=== PATIENT | male | born 1985 | race Caucasian/White ===

== ENCOUNTER 2016-12-06 10:41 | Inpatient (IN) | payer OTHER ==
[2016-12-06 13:40] VITALS: BMI 33.7
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
[2016-12-06] MEDS ORDERED: MAG HYDROX/AL HYDROX/SIMETH 30 ML UNIT-DOSE CUP PO PRN (14:07)
[2016-12-06] MEDS ORDERED: MAGNESIUM HYDROX 2400MG/30ML ORAL SUSPENSION 30 ML CUP PO PRN (14:07)
[2016-12-06] MEDS ORDERED: NICOTINE POLACRILEX 4 MG GUM BUC PRN (14:07)
[2016-12-06] MEDS ORDERED: ACETAMINOPHEN 325 MG TABLET (FP) PO PRN (14:07)
[2016-12-06] MEDS ORDERED: IBUPROFEN 400 MG TABLET (FP) PO PRN (14:07)
[2016-12-06] MEDS ORDERED: MENTHOL/PHENOL 1 EACH UD MM PRN (14:07)
[2016-12-06] MEDS ORDERED: P-EPHED 60MG/TRIPROLIDI 2.5MG TABLET PO PRN (14:07)
[2016-12-06] MEDS ORDERED: LOPERAMIDE HCL 2 MG CAPSULE PO PRN (14:07)
[2016-12-06] MEDS ORDERED: MAGNESIUM CITRATE 300 ML BOTTLE PO PRN (14:07)
[2016-12-06] MEDS ORDERED: diphenhydrAMINE HCL 50 MG CAPSULE PO PRN (14:07)
[2016-12-06] MEDS ORDERED: guaiFENesin/D-METHORPHAN HB 10 ML UNIT-DOSE CUPS PO PRN (14:07)
[2016-12-06] MEDS ORDERED: TUBERCULIN PPD 5 TU/0.1ML VIAL ID ONE (16:42)
[2016-12-06 17:49] LABS: MCH 30.6 pg (25.7-33.7); MCHC 33.2 g/dl (32.0-35.9); MEAN CELL VOLUME 92.2 fl (80-96); MEAN PLT VOLUME 9.3 fl (7.5-11.1); PLATELET COUNT 196 K/MM3 (134-434); RDW 13.7 % (11.9-15.9); WHITE BLOOD COUNT 10.6 K/mm3 (4.0-10.0)
[2016-12-06 18:01] LABS: ALBUMIN 4.6 g/dl (3.4-5.0); ANION GAP 12 (8-16); CALCIUM 9.1 mg/dL (8.5-10.1); CO2 27 mmol/L (21-32); CREATININE 1.1 mg/dL (0.7-1.3); GLUCOSE,RANDOM 104 mg/dL (74-106); SGOT/AST 42 U/L (15-37); SGPT/ALT 88 U/L (12-78)
[2016-12-06 18:02] LABS: ALK PHOS 50 U/L (45-117); BILIRUBIN,TOTAL 2.1 mg/dL (0.2-1.0); TOT PROT 7.9 g/dl (6.4-8.2)
[2016-12-06 19:11] LABS: URINE APPEARANCE CLEAR; URINE BILIRUBIN NEGATIVE (NEGATIVE); URINE BLOOD NEGATIVE (NEGATIVE); URINE COLOR DKYELLOW; URINE GLUCOSE (UA) NEGATIVE (NEGATIVE); URINE KETONE NEGATIVE (NEGATIVE); URINE LEUK ESTERASE NEGATIVE (NEGATIVE); URINE NITRITE NEGATIVE (NEGATIVE); URINE PROTEIN NEGATIVE (NEGATIVE); URINE UROBILINOGEN NEGATIVE E.U./dl (0.2-1.0)
[2016-12-06] MEDS: NICOTINE 21 MG/24 HOURS TOPICAL PATCH TD SCH (19:44)
[2016-12-06] MEDS: THIAMINE HCL 100 MG TABLET (FP) PO SCH (21:53)
[2016-12-07] MEDS: NICOTINE 21 MG/24 HOURS TOPICAL PATCH TD SCH (09:40)
[2016-12-07] MEDS: PRENATAL VITAMINS W/ FOLIC ACID TABLET (FP) PO SCH (09:40)
[2016-12-07] MEDS ORDERED: METHADONE HCL 10 MG TABLET PO SCH (10:15)
[2016-12-07] MEDS ORDERED: METHADONE HCL 40 MG DISPERSABLE TABLET ONE (10:23)
[2016-12-07] MEDS ORDERED: METHADONE HCL 10 MG TABLET ONE (10:23)
[2016-12-07] MEDS ORDERED: METHADONE 80 MG, METHADONE 30 MG PO ONE (10:30)
[2016-12-07 13:16] LABS: HIV 1 & 2 AB NEGATIVE; HIV 1 AGp24 NEGATIVE
--- NOTE | 2016-12-07 15:00 | EKG ---
Test Reason : Blood Pressure : / mmHG Vent. Rate : 064 BPM Atrial Rate : 064 BPM P-R Int : 186 ms QRS Dur : 096 ms QT Int : 450 ms P-R-T Axes : 063 017 039 degrees QTc Int : 464 ms NORMAL SINUS RHYTHM NO PREVIOUS ECGS AVAILABLE Confirmed by BELLA WARREN MD ([id number]) on 12/07/2016 3:00:41 PM Referred By: Leonides Matthews Confirmed By:BELLA WARREN MD
[2016-12-07] MEDS: THIAMINE HCL 100 MG TABLET (FP) PO SCH (21:11)
[2016-12-08] MEDS ORDERED: METHADONE HCL 10 MG TABLET ONE (04:06)
[2016-12-08] MEDS ORDERED: METHADONE HCL 40 MG DISPERSABLE TABLET ONE (04:07)
[2016-12-08] MEDS: METHADONE 80 MG, METHADONE 30 MG PO SCH (06:28)
[2016-12-08] MEDS: NICOTINE 21 MG/24 HOURS TOPICAL PATCH TD SCH (09:40)
[2016-12-08] MEDS: PRENATAL VITAMINS W/ FOLIC ACID TABLET (FP) PO SCH (09:40)
[2016-12-08] MEDS: hydrOXYzine PAMOATE 25 MG CAPSULE (FP) PO PRN ×2 (09:42→21:54)
[2016-12-08] MEDS: THIAMINE HCL 100 MG TABLET (FP) PO SCH (21:52)
[2016-12-09] MEDS ORDERED: METHADONE HCL 10 MG TABLET ONE (03:06)
[2016-12-09] MEDS ORDERED: METHADONE HCL 40 MG DISPERSABLE TABLET ONE (03:07)
[2016-12-09] MEDS: METHADONE 80 MG, METHADONE 30 MG PO SCH (06:27)
[2016-12-09] MEDS: PRENATAL VITAMINS W/ FOLIC ACID TABLET (FP) PO SCH (09:29)
[2016-12-09] MEDS: NICOTINE 21 MG/24 HOURS TOPICAL PATCH TD SCH (09:29)
[2016-12-09] MEDS: hydrOXYzine PAMOATE 25 MG CAPSULE (FP) PO PRN (09:30)
[2016-12-09] MEDS ORDERED: COLLOIDAL OATMEAL 1 BAR EACH TP PRN (12:11)
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
[2016-12-09] MEDS: THIAMINE HCL 100 MG TABLET (FP) PO SCH (21:41)
[2016-12-09] MEDS: hydrOXYzine PAMOATE 50 MG CAPSULE (FP) PO PRN (21:41)
[2016-12-10] MEDS ORDERED: METHADONE HCL 10 MG TABLET ONE (03:05)
[2016-12-10] MEDS ORDERED: METHADONE HCL 40 MG DISPERSABLE TABLET ONE (03:05)
[2016-12-10] MEDS: METHADONE 80 MG, METHADONE 30 MG PO SCH (06:32)
[2016-12-10] MEDS: hydrOXYzine PAMOATE 50 MG CAPSULE (FP) PO PRN ×2 (06:34→20:47)
[2016-12-10] MEDS: NICOTINE 21 MG/24 HOURS TOPICAL PATCH TD SCH (09:24)
[2016-12-10] MEDS: PRENATAL VITAMINS W/ FOLIC ACID TABLET (FP) PO SCH (09:24)
[2016-12-10] MEDS: THIAMINE HCL 100 MG TABLET (FP) PO SCH (21:52)
[2016-12-11] MEDS ORDERED: METHADONE HCL 10 MG TABLET ONE (04:42)
[2016-12-11] MEDS ORDERED: METHADONE HCL 40 MG DISPERSABLE TABLET ONE (04:43)
[2016-12-11] MEDS: METHADONE 80 MG, METHADONE 30 MG PO SCH (06:28)
[2016-12-11] MEDS: NICOTINE 21 MG/24 HOURS TOPICAL PATCH TD SCH (09:25)
[2016-12-11] MEDS: PRENATAL VITAMINS W/ FOLIC ACID TABLET (FP) PO SCH (09:25)
[2016-12-11] MEDS: hydrOXYzine PAMOATE 50 MG CAPSULE (FP) PO PRN ×2 (09:26→21:51)
[2016-12-11] MEDS: THIAMINE HCL 100 MG TABLET (FP) PO SCH (21:50)
[2016-12-12] MEDS ORDERED: METHADONE HCL 10 MG TABLET ONE (05:02)
[2016-12-12] MEDS ORDERED: METHADONE HCL 40 MG DISPERSABLE TABLET ONE (05:03)
[2016-12-12] MEDS: METHADONE 80 MG, METHADONE 30 MG PO SCH (06:24)
[2016-12-12] MEDS: PRENATAL VITAMINS W/ FOLIC ACID TABLET (FP) PO SCH (09:50)
[2016-12-12] MEDS: hydrOXYzine PAMOATE 50 MG CAPSULE (FP) PO PRN ×2 (09:51→21:36)
[2016-12-12] MEDS: NICOTINE 21 MG/24 HOURS TOPICAL PATCH TD SCH (09:52)
[2016-12-12] MEDS: THIAMINE HCL 100 MG TABLET (FP) PO SCH (21:36)
[2016-12-13] MEDS ORDERED: METHADONE HCL 40 MG DISPERSABLE TABLET ONE (03:09)
[2016-12-13] MEDS ORDERED: METHADONE HCL 10 MG TABLET ONE (03:09)
[2016-12-13] MEDS: METHADONE 80 MG, METHADONE 30 MG PO SCH (06:45)
[2016-12-13] MEDS: PRENATAL VITAMINS W/ FOLIC ACID TABLET (FP) PO SCH (09:25)
[2016-12-13] MEDS: NICOTINE 21 MG/24 HOURS TOPICAL PATCH TD SCH (09:25)
[2016-12-13] MEDS: hydrOXYzine PAMOATE 50 MG CAPSULE (FP) PO PRN ×2 (09:26→22:03)
[2016-12-13] MEDS: THIAMINE HCL 100 MG TABLET (FP) PO SCH (22:03)
[2016-12-14] MEDS ORDERED: METHADONE HCL 40 MG DISPERSABLE TABLET PO SCH (06:00)
[2016-12-14] MEDS ORDERED: METHADONE HCL 10 MG TABLET ONE (06:23)
[2016-12-14] MEDS ORDERED: METHADONE HCL 40 MG DISPERSABLE TABLET ONE (06:23)
[2016-12-14] MEDS: METHADONE 80 MG, METHADONE 30 MG PO SCH (06:24)
[2016-12-14] MEDS: PRENATAL VITAMINS W/ FOLIC ACID TABLET (FP) PO SCH (09:43)
[2016-12-14] MEDS: NICOTINE 21 MG/24 HOURS TOPICAL PATCH TD SCH (09:43)
[2016-12-14] MEDS: hydrOXYzine PAMOATE 50 MG CAPSULE (FP) PO PRN ×2 (09:43→21:58)
[2016-12-14] MEDS: THIAMINE HCL 100 MG TABLET (FP) PO SCH (21:58)
[2016-12-15] MEDS ORDERED: METHADONE HCL 10 MG TABLET ONE (03:08)
[2016-12-15] MEDS ORDERED: METHADONE HCL 40 MG DISPERSABLE TABLET ONE (03:08)
[2016-12-15] MEDS: METHADONE 80 MG, METHADONE 30 MG PO SCH (06:52)
[2016-12-15] MEDS: PRENATAL VITAMINS W/ FOLIC ACID TABLET (FP) PO SCH (09:34)
[2016-12-15] MEDS: hydrOXYzine PAMOATE 50 MG CAPSULE (FP) PO PRN ×2 (09:34→21:52)
[2016-12-15] MEDS: NICOTINE 21 MG/24 HOURS TOPICAL PATCH TD SCH (09:34)
[2016-12-15] MEDS: THIAMINE HCL 100 MG TABLET (FP) PO SCH (21:52)
[2016-12-16] MEDS ORDERED: METHADONE HCL 10 MG TABLET ONE (03:06)
[2016-12-16] MEDS ORDERED: METHADONE HCL 40 MG DISPERSABLE TABLET ONE (03:06)
[2016-12-16] MEDS: METHADONE 80 MG, METHADONE 30 MG PO SCH (06:34)
[2016-12-16] MEDS: hydrOXYzine PAMOATE 50 MG CAPSULE (FP) PO PRN ×2 (09:42→21:52)
[2016-12-16] MEDS: NICOTINE 21 MG/24 HOURS TOPICAL PATCH TD SCH (09:42)
[2016-12-16] MEDS: PRENATAL VITAMINS W/ FOLIC ACID TABLET (FP) PO SCH (09:42)
[2016-12-16] MEDS: THIAMINE HCL 100 MG TABLET (FP) PO SCH (21:52)
[2016-12-17] MEDS ORDERED: METHADONE HCL 10 MG TABLET ONE (03:44)
[2016-12-17] MEDS ORDERED: METHADONE HCL 40 MG DISPERSABLE TABLET ONE (03:44)
[2016-12-17] MEDS: METHADONE 80 MG, METHADONE 30 MG PO SCH (06:28)
[2016-12-17] MEDS: PRENATAL VITAMINS W/ FOLIC ACID TABLET (FP) PO SCH (10:12)
[2016-12-17] MEDS: NICOTINE 21 MG/24 HOURS TOPICAL PATCH TD SCH (10:12)
[2016-12-17] MEDS: hydrOXYzine PAMOATE 50 MG CAPSULE (FP) PO PRN ×2 (10:13→21:20)
[2016-12-17] MEDS: THIAMINE HCL 100 MG TABLET (FP) PO SCH (21:19)
[2016-12-18] MEDS ORDERED: METHADONE HCL 10 MG TABLET ONE (03:20)
[2016-12-18] MEDS ORDERED: METHADONE HCL 40 MG DISPERSABLE TABLET ONE (03:20)
[2016-12-18] MEDS: METHADONE 80 MG, METHADONE 30 MG PO SCH (06:36)
[2016-12-18 07:07] VITALS: BP 111/67; PULSE 63; TEMP 97.5
[2016-12-18] MEDS: hydrOXYzine PAMOATE 50 MG CAPSULE (FP) PO PRN (09:51)
[2016-12-18] MEDS: PRENATAL VITAMINS W/ FOLIC ACID TABLET (FP) PO SCH (09:51)
[2016-12-18] MEDS: NICOTINE 21 MG/24 HOURS TOPICAL PATCH TD SCH (09:52)
--- NOTE | 2016-12-18 20:04 | PN ---
S Progress Note Note: was called by nurse because of the patient request for early discharge. Patient was admitted on 12/06/16, he partially met goals.
--- NOTE | 2016-12-18 20:21 | PN ---
[facility] Progress Note Note: RECEIVED NURSE CALL, PATIENT DISCHARGED TODAY AGREES TO FOLLOW UP PER COUNSELOR ARRANGED, REFUSES E -PRESCRIPTION
== END 2016-12-18 19:50 | disposition home or self-care (01) | DRG 895 ==
LOC: YASAS 10:41 → Y5N 13:38
PROVIDERS: ADMIT Psychiatry & Neurology Psychiatry; ATTEND Psychiatry & Neurology Psychiatry
PROC: HZ42ZZZ Group Counseling for Substance Abuse Treatment, Cognitive-Behavioral (ICD-10-PCS; principal; 2016-12-06)
DX: F14.20 Cocaine dependence, uncomplicated (principal); F11.20 Opioid dependence, uncomplicated; F19.280 Other psychoactive substance dependence with psychoactive substance-induced anxiety disorder; F13.10 Sedative, hypnotic or anxiolytic abuse, uncomplicated; F17.210 Nicotine dependence, cigarettes, uncomplicated; F90.9 Attention-deficit hyperactivity disorder, unspecified type; E66.09 Other obesity due to excess calories; Z68.33 Body mass index [BMI] 33.0-33.9, adult
CPT/HCPCS: 36415; 80053; 81003; 85027; 86593; 87389; 93005; 93010

== ENCOUNTER 2018-10-09 01:08 | Inpatient (IN) | payer OTHER ==
[2018-10-09] MEDS ORDERED: VANCOMYCIN 1 GRAM (PRE-DOCKED) 1,000 MG/250 ML BAG IVPB ONE ×3 (01:29→15:00)
[2018-10-09] MEDS ORDERED: PIPERACILLIN/TAZOB 4.5 GM 4.5 GM in DEXTROSE 5%-WATER 100 ML IVPB ONE (01:29)
--- NOTE | 2018-10-09 01:29 | PDOC ---
Attending Attestation - Resident Resident Name: Anthony Gonzáles - ED Attending Attestation I have performed the following: I have examined & evaluated the patient, The case was reviewed & discussed with the resident, I agree w/resident's findings & plan, Exceptions are as noted - HPI HPI: 10/09/18 01:28 33y M active drug user presents with complain of arm abcess. started 2 days ago as a small bump on the AC fossa of his L arm after he missed after doing IV heroin. notes the pain has ogtten much worse. endorses some fever. denies any numbness/tingling/weakness. 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 Admitting physician has assumed care for the patient, will follow all pending diagnostics and will complete the evaluation and treatment. - Physicial Exam PE: 10/15/18 08:11 see above - Medical Decision Making 10/15/18 08:11 see above
[2018-10-09 01:31] VITALS: BMI 35.9
[2018-10-09] MEDS ORDERED: BENZOIN/ALOE VERA/STORAX/TOLU 58 ML BOTTLE ONE (02:05)
[2018-10-09] MEDS ORDERED: morphine CARPU-JECT 4 MG/1 ML DISP.SYRIN IVPUSH ONE (02:09)
[2018-10-09 02:14] LABS: BASO % 0.2 % (0-2.0); EOS % 1.3 % (0-4.5); HEMATOCRIT 39.8 % (35.4-49); HEMOGLOBIN 13.9 GM/dL (11.7-16.9); LYMPH % 16.4 % (8-40); MCH 31.3 pg (25.7-33.7); MCHC 34.8 g/dl (32.0-35.9); MEAN PLT VOLUME 8.5 fl (7.5-11.1); NEUT % 74.1 % (42.8-82.8); PLATELET COUNT 212 K/MM3 (134-434); RBC 4.42 M/mm3 (4.00-5.60); RDW 13.8 % (11.9-15.9); WHITE BLOOD COUNT 10.7 K/mm3 (4.0-10.0)
[2018-10-09] MEDS ORDERED: morphine SULFATE 4 MG/ML VIAL ONE (02:14)
[2018-10-09 02:28] LABS: INR 1.18 (0.83-1.09)
--- NOTE | 2018-10-09 02:37 | PDOC ---
History of Present Illness - General Chief Complaint: Abscess Boil Stated Complaint: ARM ABSCESS Time Seen by Provider: 10/09/18 01:18 History Source: Patient Exam Limitations: No Limitations - History of Present Illness Initial Comments: 10/09/18 02:33 Patient is a 33M active IVDU (heroin) here today complaining of pain and swelling to his left arm that started two days. Patient states that the pain started off as small bump that rapidly grew. Endorses injecting into the affected area and using dirty needles. Last tested for HIV about a year ago. Denies chest pain, shortness of breath. Endorses pain with movement of arm. Endorses fevers, chills. Past History - Past Medical History Allergies/Adverse Reactions: Allergies Allergy/AdvReac Type Severity Reaction Status Date / Time No Known Allergies Allergy Verified 10/09/18 01:29 Home Medications: Ambulatory Orders Methadone [Dolophine -] 60 mg PO DAILY 10/09/18 Anemia: No Asthma: No Cancer: No Cardiac Disorders: No CVA: No COPD: No CHF: No Dementia: No Diabetes: No GI Disorders: No Disorders: No HTN: No Hypercholesterolemia: No Kidney Stones: No Liver Disease: No Seizures: No Thyroid Disease: No - Surgical History Abdominal Surgery: No Appendectomy: No Cardiac Surgery: No Cholecystectomy: No Lung Surgery: No Neurologic Surgery: No Orthopedic Surgery: No - Reproductive History Testicular Surgery: No - Suicide/Smoking/Psychosocial Hx Smoking History: Unknown if ever smoked Have you smoked in the past 12 months: No Number of Cigarettes Smoked Daily: 10 Cigars Per Day: 0 Information on smoking cessation initiated: No 'Breaking Loose' booklet given: 08/05/17 Hx Alcohol Use: Yes Drug/Substance Use Hx: Yes Substance Use Type: Alcohol, Cocaine, Heroin Hx Substance Use Treatment: Yes (11/2016) Review of Systems - Review of Systems Comments:: 10/09/18 02:34 GENERAL/CONSTITUTIONAL: +fever +chills. No weakness. HEAD, EYES, EARS, NOSE AND THROAT: No change in vision. No sore throat. CARDIOVASCULAR: No chest pain or shortness of breath RESPIRATORY: No cough, wheezing, or hemoptysis. GASTROINTESTINAL: No nausea, vomiting, diarrhea or constipation. GENITOURINARY: No dysuria, frequency, or change in urination. MUSCULOSKELETAL: +l elbow pain. No neck or back pain. SKIN: +rash NEUROLOGIC: No headache, vertigo, loss of consciousness, or change in strength/ sensation. ENDOCRINE: No increased thirst. No abnormal weight change HEMATOLOGIC/LYMPHATIC: No anemia, easy bleeding, or history of blood clots. ALLERGIC/IMMUNOLOGIC: No hives or skin allergy. *Physical Exam - Vital Signs Last Vital Signs Temp Pulse Resp BP Pulse Ox 98.5 F 100 H 18 124/74 97 10/09/18 01:29 10/09/18 01:29 10/09/18 01:29 10/09/18 01:29 10/09/18 01:29 - Physical Exam Comments: 10/09/18 02:35 GENERAL: Awake, alert, and fully oriented, in no acute distress L ARM: Discolored area in anterior aspect of elbow joint, fluctuance with surrounding erythema from mid bicep to mid elbow HEAD: No signs of trauma, normocephalic, atraumatic EYES: PERRLA, EOMI, sclera anicteric, conjunctiva clear ENT: Auricles normal inspection, hearing grossly normal, nares patent, oropharynx clear without exudates. Moist mucosa NECK: Normal ROM, supple, no lymphadenopathy, JVD, or masses LUNGS: No distress, speaks full sentences, clear to auscultation bilaterally HEART: Regular rate and rhythm, normal S1 and S2, no murmurs, rubs or gallops, peripheral pulses normal and equal bilaterally. ABDOMEN: Soft, nontender, normoactive bowel sounds. No guarding, no rebound. No masses EXTREMITIES: Normal inspection, Normal range of motion, no edema. No clubbing or cyanosis. NEUROLOGICAL: Cranial nerves II through XII grossly intact. Normal speech, normal gait, no focal sensorimotor deficits SKIN: Warm, Dry, normal turgor, no rashes or lesions noted. Moderate Sedation - Procedure Monitoring Vital Signs: Procedure Monitoring Vital Signs Temperature 98.5 F 10/09/18 01:29 Pulse Rate 100 H 10/09/18 01:29 Respiratory Rate 18 10/09/18 01:29 Blood Pressure 124/74 10/09/18 01:29 O2 Sat by Pulse Oximetry (%) 97 10/09/18 01:29 ED Treatment Course - LABORATORY CBC & Chemistry Diagram: 10/09/18 01:51 10/09/18 01:51 - ADDITIONAL ORDERS Additional order review: Laboratory Results 10/09/18 01:51 PT with INR 14.00 H INR 1.18 H 10/09/18 01:51 RBC 4.42 MCV 90.0 MCHC 34.8 RDW 13.8 MPV 8.5 Neutrophils % 74.1 D Lymphocytes % 16.4 D Monocytes % 8.0 Eosinophils % 1.3 Basophils % 0.2 - RADIOLOGY Radiology Studies Ordered: Category Date Time Status UPPER EXTREMITY CT WITH CONTR [CT] Stat CT Scan 10/09/18 02:14 Ordered CHEST X-RAY PORTABLE* [RAD] Stat Radiology 10/09/18 01:25 Ordered ELBOW-LEFT [RAD] Stat Radiology 10/09/18 01:26 Ordered - Medications Given in the ED: ED Medications Discontinued Medications Generic Name Dose Route Start Last Admin Trade Name Freq PRN Reason Stop Dose Admin Piperacillin Sod/Tazobactam 100 mls @ 200 mls/hr 10/09/18 01:29 10/09/18 02: 23 Sod 4.5 gm/ Dextrose IVPB 10/09/18 01:58 200 mls/hr ONCE ONE Administration Protocol Morphine Sulfate 4 mg 10/09/18 02:09 10/09/18 02:23 Morphine Injection - IVPUSH 10/09/18 02:10 4 mg ONCE ONE Administration Medical Decision Making - Medical Decision Making 10/09/18 02:36 Patient is 33M here today with abscess and surrounding cellulitis. Vital signs notable for tachycardia, no fever. Septic workup initiated, will also test for HIV. Evaluated with US, roughly 3-4cm deep, difficult to see back end of abscess. Will do CT to evaluate depth of abscess. US guided IV placed, pain control given. 10/09/18 04:53 CBC normal. CMP reassuring. HIV negative. X-rays show no foreign bodies. Pending CT. 10/09/18 05:16 Do not feel comfortable cutting into abscess given surrounding structures. Will consult surgery. D/W Dr Khan, will admit to m/s. 10/09/18 06:03 CT scan shows encirclement of superficial vein, d/w Dr Guerrier, will see patient. *DC/Admit/Observation/Transfer Diagnosis at time of Disposition: Abscess, Cellulitis, IV drug abuse - Discharge Dispostion Condition at time of disposition: Stable Decision to Admit order: Yes - Referrals - Patient Instructions - Post Discharge Activity
[2018-10-09 02:43] LABS: ALBUMIN 3.3 g/dl (3.4-5.0); ALK PHOS 57 U/L (45-117); ANION GAP 8 MMOL/L (8-16); BILIRUBIN,TOTAL 0.6 mg/dL (0.2-1); BLOOD UREA NITROGEN 21 mg/dL (7-18); CALCIUM 8.4 mg/dL (8.5-10.1); CHLORIDE 105 mmol/L (98-107); CO2 28 mmol/L (21-32); CREATININE 0.9 mg/dL (0.55-1.3); GLUCOSE,RANDOM 98 mg/dL (74-106); POTASSIUM 3.8 mmol/L (3.5-5.1); SGOT/AST 17 U/L (15-37); SGPT/ALT 25 U/L (13-61); SODIUM 141 mmol/L (136-145); TOT PROT 6.7 g/dl (6.4-8.2)
[2018-10-09 05:08] LABS: URINE APPEARANCE CLEAR; URINE BILIRUBIN NEGATIVE (<2.0 mg/dL); URINE COLOR STRAW; URINE GLUCOSE (UA) NEGATIVE (NEGATIVE); URINE KETONE NEGATIVE (NEGATIVE); URINE LEUK ESTERASE NEGATIVE (NEGATIVE); URINE NITRITE NEGATIVE (NEGATIVE); URINE PROTEIN NEGATIVE (NEGATIVE); URINE UROBILINOGEN NEGATIVE mg/dL (0.2-1.0)
[2018-10-09 05:25] LABS: PHENCYCLIDINE,URINE NEGATIVE ng/ml (CUTOFF=25); URINE AMPHETAMINES NEGATIVE ng/ml (CUTOFF=500); URINE BARBITURATES NEGATIVE ng/ml (CUTOFF=200); URINE BENZODIAZEPINES NEGATIVE ng/ml (CUTOFF=200)
[2018-10-09 05:28] LABS: COCAINE, UR POSITIVE ng/ml (CUTOFF=300); METHADONE, UR POSITIVE ng/ml (CUTOFF=300); OPIATES, URI POSITIVE ng/ml (CUTOFF=300)
[2018-10-09] MEDS ORDERED: MORPHINE SULFATE 2 MG/ML VIAL IVPUSH PRN (06:19)
--- NOTE | 2018-10-09 06:24 | HP ---
CHIEF COMPLAINT: Arm abscess PCP: None HISTORY OF PRESENT ILLNESS: Seen and examined in ER; briefly, this is a 33 y/o CM with a PMH of IVDU on home methadone 60 QD with h/o polysubstance abuse presenting to the hospital with a CC of arm pain at injection site. He was injecting drugs and tells me that he missed the vein. He had over 2 days worsening of swelling, pain, induration, and fluctuance at the site. Nothing makes it better or worse, hasn' t seen anyone else for this. No prior instrumentation to the area; no abx recently. he is neurovascularly intact with good pulses and can move his hand. ER spoke with Dr. Guerrier who will see him. Recent Travel: None PAST MEDICAL HISTORY: IVDU PAST SURGICAL HISTORY: Social History: Active IV drug user Family History: Asked and noncontributory Allergies No Known Allergies Allergy (Verified 10/09/18 01:29) HOME MEDICATIONS: Home Medications Medication Instructions Recorded Methadone [Dolophine -] 60 mg PO DAILY 10/09/18 REVIEW OF SYSTEMS 10 sys ROS done and negative aside from HPI PHYSICAL EXAMINATION Vital Signs - 24 hr 10/09/18 01:29 Temperature 98.5 F Pulse Rate 100 H Respiratory 18 Rate Blood Pressure 124/74 O2 Sat by Pulse 97 Oximetry (%) GENERAL: Awake, alert, and fully oriented, in no acute distress. HEAD: Normal with no signs of trauma. EYES: Pupils equal, round and reactive to light EARS, NOSE, THROAT: Ears normal, nares patent, oropharynx clear without exudates. Moist mucous membranes. NECK: Normal range of motion, supple without lymphadenopathy, JVD, or masses. LUNGS: Breath sounds equal, clear to auscultation bilaterally. No wheezes, and no crackles. No accessory muscle use. HEART: Regular rate and rhythm, normal S1 and S2 without murmur, rub or gallop. ABDOMEN: Soft, nontender, not distended, normoactive bowel sounds MUSCULOSKELETAL: Large abscess outlined in AC fossa of affected arm with induration extending to the forearm and neurovascularly intact. Normal range of motion at all joints. No bony deformities or tenderness. No CVA tenderness. NEUROLOGICAL: Cranial nerves II-XII intact. Normal speech. Normal gait. PSYCHIATRIC: Cooperative. Good eye contact. Appropriate mood and affect. SKIN: Warm, dry, normal turgor, no rashes or lesions noted, normal capillary refill. Laboratory Results - last 24 hr 10/09/18 10/09/18 10/09/18 01:51 01:51 01:51 WBC 10.7 H RBC 4.42 Hgb 13.9 Hct 39.8 MCV 90.0 MCH 31.3 MCHC 34.8 RDW 13.8 Plt Count 212 D MPV 8.5 Absolute Neuts (auto) 7.9 Neutrophils % 74.1 D Lymphocytes % 16.4 D Monocytes % 8.0 Eosinophils % 1.3 Basophils % 0.2 Nucleated RBC % 0 PT with INR 14.00 H INR 1.18 H Sodium 141 Potassium 3.8 Chloride 105 Carbon Dioxide 28 Anion Gap 8 BUN 21 H Creatinine 0.9 Creat Clearance w eGFR > 60 Random Glucose 98 Lactic Acid Calcium 8.4 L Total Bilirubin 0.6 AST 17 ALT 25 Alkaline Phosphatase 57 Total Protein 6.7 Albumin 3.3 L Urine Color Urine Appearance Urine pH Ur Specific [place] Urine Protein Urine Glucose (UA) Urine Ketones Urine Blood Urine Nitrite Urine Bilirubin Urine Urobilinogen Ur Leukocyte Esterase Opiates Screen Methadone Screen Barbiturate Screen Phencyclidine Screen Ur Amphetamines Screen MDMA (Ecstasy) Screen Benzodiazepines Screen Cocaine Screen U Marijuana (THC) Screen HIV 1&2 Antibody Screen HIV P24 Antigen 10/09/18 10/09/18 10/09/18 01:51 01:51 04:55 WBC RBC Hgb Hct MCV MCH MCHC RDW Plt Count MPV Absolute Neuts (auto) Neutrophils % Lymphocytes % Monocytes % Eosinophils % Basophils % Nucleated RBC % PT with INR INR Sodium Potassium Chloride Carbon Dioxide Anion Gap BUN Creatinine Creat Clearance w eGFR Random Glucose Lactic Acid 1.5 Calcium Total Bilirubin AST ALT Alkaline Phosphatase Total Protein Albumin Urine Color Straw Urine Appearance Clear Urine pH 6.0 Ur Specific [place] 1.055 H Urine Protein Negative Urine Glucose (UA) Negative Urine Ketones Negative Urine Blood Negative Urine Nitrite Negative Urine Bilirubin Negative Urine Urobilinogen Negative Ur Leukocyte Esterase Negative Opiates Screen Methadone Screen Barbiturate Screen Phencyclidine Screen Ur Amphetamines Screen MDMA (Ecstasy) Screen Benzodiazepines Screen Cocaine Screen U Marijuana (THC) Screen HIV 1&2 Antibody Screen Negative HIV P24 Antigen Negative 10/09/18 04:55 WBC RBC Hgb Hct MCV MCH MCHC RDW Plt Count MPV Absolute Neuts (auto) Neutrophils % Lymphocytes % Monocytes % Eosinophils % Basophils % Nucleated RBC % PT with INR INR Sodium Potassium Chloride Carbon Dioxide Anion Gap BUN Creatinine Creat Clearance w eGFR Random Glucose Lactic Acid Calcium Total Bilirubin AST ALT Alkaline Phosphatase Total Protein Albumin Urine Color Urine Appearance Urine pH Ur Specific [place] Urine Protein Urine Glucose (UA) Urine Ketones Urine Blood Urine Nitrite Urine Bilirubin Urine Urobilinogen Ur Leukocyte Esterase Opiates Screen Positive A* Methadone Screen Positive A* Barbiturate Screen Negative Phencyclidine Screen Negative Ur Amphetamines Screen Negative MDMA (Ecstasy) Screen Negative Benzodiazepines Screen Negative Cocaine Screen Positive A* U Marijuana (THC) Screen Negative HIV 1&2 Antibody Screen HIV P24 Antigen ASSESSMENT/PLAN: Presents with forearm abscess 2/2 IVDU 1) Forearm Abscess -Preliminary report reviewed; final report pending. Dr. Guerrier and Dr. Mallory have been consulted. -Trend CBC. FU ESR. -IV vancomycin with pharmacy to dose. Blood cultures pending. Will need procedure to drain; will followup intraop cx. -ER to use device to r/o compartemetn syndrome -Neurovascular checks; outlined the infected area. 2) IVDU -Continue home methadone -Positive for opriates, methadone, cocaine -Technical Support Internship; continue to monitor for murmurs and if positive we will get echo to r/ o endocarditis -No h/o EtOH but if WD signs low threshold for CIWA -HIV negative; HCV Ab pending Dispo: Needs procedure and to see consultants Consults: Sgy (Dr. Guerrier, contacted by ER) and ID (Dr. Mallory, pending) FENA -LR@100 -PRN replete -NPO until OK with sgy for potential procedure -As tolerated Full Code Visit type - Emergency Visit Emergency Visit: Yes ED Registration Date: 10/09/18 Care time: The patient presented to the Emergency Department on the above date and was hospitalized for further evaluation of their emergent condition. - New Patient This patient is new to me today: Yes Date on this admission: 10/19/18 - Critical Care Critical Care patient: No
[2018-10-09] MEDS ORDERED: LACTATED RINGERS SOLUTION 1,000 ML IV SCH (06:30)
[2018-10-09] MEDS ORDERED: MORPHINE SULFATE 2 MG/ML VIAL ONE (09:09)
[2018-10-09] MEDS ORDERED: ACETAMINOPHEN 325 MG TABLET (FP) ONE (09:15)
[2018-10-09] MEDS ORDERED: METHADONE HCL 5 MG TABLET PO ONE (09:56)
[2018-10-09] MEDS ORDERED: METHADONE 40 MG, METHADONE 20 MG PO SCH (10:00)
[2018-10-09] MEDS ORDERED: METHADONE 40 MG, METHADONE 20 MG PO ONE (10:00)
[2018-10-09] MEDS ORDERED: METHADONE HCL 10 MG TABLET PO SCH (10:00)
[2018-10-09] MEDS ORDERED: ACETAMINOPHEN 1000 MG/100 ML VIAL (NON FORMULARY) IVPB PRN (10:01)
[2018-10-09] MEDS ORDERED: PIPERACILLIN/TAZOB 4.5 GM 4.5 GM/100 ML BAG IVPB ONE (10:08)
[2018-10-09] MEDS: PIPERACILLIN/TAZOB 4.5 GM 4.5 GM in DEXTROSE 5%-WATER 100 ML IVPB SCH ×2 (10:10→17:57)
--- NOTE | 2018-10-09 11:54 | EKG ---
Test Reason : Blood Pressure : / mmHG Vent. Rate : 085 BPM Atrial Rate : 085 BPM P-R Int : 166 ms QRS Dur : 092 ms QT Int : 366 ms P-R-T Axes : 056 006 043 degrees QTc Int : 435 ms NORMAL SINUS RHYTHM NORMAL ECG WHEN COMPARED WITH ECG OF 05-AUG-2017 22:11, NO SIGNIFICANT CHANGE WAS FOUND Confirmed by LYNN REDDING MD ([id number]) on 10/09/2018 11:53:42 AM Referred By: Confirmed By:LYNN REDDING MD
--- NOTE | 2018-10-09 12:04 | CONSULT ---
Consult Consult Specialty:: Surgery Reason for Consultation:: Abscess, / cellulitis left arm and forearm. Intravenous drug abuse. - History of Present Illness History of Present Illness: Seen and examined in ER; This is a 33 y/o CM with a PMH of IVDU on home methadone 60 QD with h/o polysubstance abuse presents to the hospital with a CC of arm pain at injection site. He was injecting drugs, heroin He had over 2 days worsening of swelling, pain, induration, and fluctuance at the site. No prior instrumentation to the area; no abx recently. he is neurovascularly intact with good pulses and can move his hand. ER spoke with Dr. Guerrier who will see him. - History Source History Provided By: Patient - Alcohol/Substance Use Hx Alcohol Use: Yes - Smoking History Smoking history: Unknown if ever smoked Have you smoked in the past 12 months: No Aproximately how many cigarettes per day: 10 Home Medications - Allergies Allergies/Adverse Reactions: Allergies Allergy/AdvReac Type Severity Reaction Status Date / Time No Known Allergies Allergy Verified 10/09/18 01:29 - Home Medications Home Medications: Ambulatory Orders Methadone [Dolophine -] 60 mg PO DAILY 10/09/18 Family Disease History - Family Disease History Family Disease History: Diabetes: Grandparent (GM), Brother (2 BROTHERS), Other : Father (crack/cocaine dependency), Mother (crack/cocaine dependency ) Physical Exam Vital Signs: Vital Signs Temperature 98.5 F 10/09/18 10:45 Pulse Rate 80 10/09/18 10:45 Respiratory Rate 16 10/09/18 10:45 Blood Pressure 134/76 10/09/18 10:45 O2 Sat by Pulse Oximetry (%) 97 10/09/18 09:00 Musculoskeletal: Yes: Other (Swelling, redness around the left cubital foassa and above as wellas below , into the left arm and forearm.) Labs: CBC, BMP 10/09/18 01:51 10/09/18 01:51 Imaging - Results Cat Scan: Report Reviewed, Image Reviewed Problem List - Problems (1) Abscess of left upper arm and forearm Code(s): L02.414 - CUTANEOUS ABSCESS OF LEFT UPPER LIMB (2) Cellulitis Code(s): L03.90 - CELLULITIS, UNSPECIFIED (3) Cocaine dependence, uncomplicated Code(s): F14.20 - COCAINE DEPENDENCE, UNCOMPLICATED Assessment/Plan Patient is explained that he needs incision and drainage of abscess and infection. Risk of necrotiusisng infection and loss of limb explained. For incision and drainage of abscess. Antibiotics.
[2018-10-09] MEDS ORDERED: VANCOMYCIN 1,500 MG in DEXTROSE 5%-WATER - 500 ML IVPB SCH (13:00)
[2018-10-09] MEDS ORDERED: VANCOMYCIN 1,500 MG in DEXTROSE 5%-WATER - 250 ML IVPB SCH (13:00)
[2018-10-09] MEDS ORDERED: MIDAZOLAM HCL 2 MG/2 ML SINGLE DOSE VIAL ONE (13:22)
[2018-10-09] MEDS ORDERED: PROPOFOL 20 ML ONE ×2 (13:22→14:13)
[2018-10-09] MEDS ORDERED: oxyCODONE HCL 5 MG TABLET PO PRN (13:48)
[2018-10-09] MEDS ORDERED: ONDANSETRON 4 MG/2 ML VIAL IVPUSH PRN (13:48)
[2018-10-09] MEDS ORDERED: METHADONE HCL 40 MG DISPERSABLE TABLET PO ONE (13:54)
[2018-10-09] MEDS ORDERED: METHADONE HCL 10 MG TABLET PO ONE (13:54)
[2018-10-09] MEDS ORDERED: LIDOCAINE HCL/PF 2% SDV 5ML VIAL ONE (14:03)
[2018-10-09] MEDS ORDERED: DEXAMETHASONE SOD PHOSPHATE 4 MG/1 ML VIAL ONE (14:03)
[2018-10-09] MEDS ORDERED: KETAMINE HCL 200 MG/20 ML VIAL ONE (14:05)
[2018-10-09] MEDS ORDERED: PIPERACILLIN/TAZOBACTAM 4.5 GM VIAL IVPB ONE ×2 (14:33→14:41)
[2018-10-09] MEDS ORDERED: BACITRACIN 50,000 UNITS VIAL TP ONE (14:53)
--- NOTE | 2018-10-09 15:06 | OP ---
Operative Note - Note: Operative Date: 10/09/18 Pre-Operative Diagnosis: Abscess left arm and forearm. Necrotising fasciitis left arm and forearam Operation: Incision and drainage of abscess left elbow and forearam , and wound debridement of skin and necrotic tissue. Findings: abscess left elbow with large amount of pus, necrotic skin and subcutaneous tissue debrided, and irrigated withn power collections rep. Post-Operative Diagnosis: Same as Pre-op Surgeon: Erin Guerrier Anesthesia: General Specimens Removed: Pus for culture. Estimated Blood Loss (mls): 50 Operative Report Dictated: Yes
[2018-10-09] MEDS ORDERED: VANCOMYCIN 1,000 MG VIAL (RESTRICTED TO ID ONLY) ONE (15:53)
--- NOTE | 2018-10-09 15:53 | EKG ---
Test Reason : Blood Pressure : / mmHG Vent. Rate : 074 BPM Atrial Rate : 074 BPM P-R Int : 174 ms QRS Dur : 092 ms QT Int : 398 ms P-R-T Axes : 056 044 050 degrees QTc Int : 441 ms NORMAL SINUS RHYTHM NORMAL ECG WHEN COMPARED WITH ECG OF 09-OCT-2018 02:12, NO SIGNIFICANT CHANGE WAS FOUND Confirmed by LYNN REDDING MD ([id number]) on 10/09/2018 3:53:35 PM Referred By: Confirmed By:LYNN REDDING MD
--- NOTE | 2018-10-09 16:06 | OP ---
DATE OF OPERATION: 10/09/2018 PREOPERATIVE DIAGNOSES: Abscess of the left forearm, necrotizing fasciitis left elbow and left arm, intravenous drug abuse. POSTOPERATIVE DIAGNOSES: Abscess of the left forearm, necrotizing fasciitis left elbow and left arm, intravenous drug abuse. OPERATIVE PROCEDURES: Incision and drainage of abscess left arm and forearm, debridement of skin and subcutaneous tissue, and drainage of necrotizing fasciitis of the left arm and forearm with power irrigation. SURGEON: Juan Guerrier MD ANESTHESIA: General anesthesia. OPERATIVE DESCRIPTION: A 33-year-old man, who is an IV drug abuser, injecting heroin and cocaine, came to the hospital with swelling of the left arm and forearm and draining purulent material from the left elbow on the volar aspect. Patient was brought to the operating room. Consent was obtained. Risks, benefits, and complications were discussed with the patient. The patient was given general anesthesia. The left arm was painted with Betadine and draped. A longitudinal incision was made across the proximal forearm and the left arm. There was pus that poured out of the wound. Swab was sent for culture and antibiotic sensitivity examination. The necrotic skin and subcutaneous tissue which was about 4 cm in diameter wasexcised. The wound was thoroughly irrigated with power irrigation and vacuum. No active bleeding was noted after completion of the procedure.. The wound was packed with 4 x4 gauze soaked in betadine, and wrapped with a Kerlix. Patient will continue with antibiotics. His arm was evaluated and he is being admitted to the hospitalist service. Paul [id number] MTDD
--- NOTE | 2018-10-09 16:49 | CON.ID ---
Consult Consult Specialty:: infectious diseases Referred by:: Reason for Consultation:: abscess of the forearm/necrotizing fasitis - History of Present Illness Chief Complaint: pain and swelling of the arm History of Present Illness: 33 y/o CM with a PMH of IVDU on home methadone 60 QD with h/o polysubstance abuse presenting to the hospital with a CC of arm pain at injection site. He was injecting drugs and tells me that he missed the vein. He had over 2 days worsening of swelling, pain, induration, and fluctuance at the site. Nothing makes it better or worse, hasn't seen anyone else for this. No prior instrumentation to the area; no abx recently. patient was seen by surgery and was diagnosed as necrotizing fascitis patient was taken to the operating room and wide debriding of the wound with excision was done post op patient now in the pacu and doing well has no complaints - History Source History Provided By: Patient Limitations to Obtaining History: No Limitations - Alcohol/Substance Use Hx Alcohol Use: Yes - Smoking History Smoking history: Unknown if ever smoked Have you smoked in the past 12 months: No Aproximately how many cigarettes per day: 10 Home Medications - Allergies Allergies/Adverse Reactions: Allergies Allergy/AdvReac Type Severity Reaction Status Date / Time No Known Allergies Allergy Verified 10/09/18 01:29 - Home Medications Home Medications: Ambulatory Orders Methadone [Dolophine -] 60 mg PO DAILY 10/09/18 Family Disease History - Family Disease History Family Disease History: Diabetes: Grandparent (GM), Brother (2 BROTHERS), Other : Father (crack/cocaine dependency), Mother (crack/cocaine dependency ) Review of Systems - Review of Systems Constitutional: reports: No Symptoms Eyes: reports: No Symptoms HENT: reports: No Symptoms Neck: reports: No Symptoms Cardiovascular: reports: No Symptoms Respiratory: reports: No Symptoms Gastrointestinal: reports: No Symptoms Genitourinary: reports: No Symptoms Musculoskeletal: reports: Extremity Pain, Other Integumentary: reports: Wound Neurological: reports: No Symptoms Endocrine: reports: No Symptoms Hematology/Lymphatic: reports: No Symptoms Psychiatric: reports: No Symptoms Physical Exam Vital Signs: Vital Signs Temperature 98.0 F 10/09/18 15:06 Pulse Rate 68 10/09/18 16:20 Respiratory Rate 16 10/09/18 16:20 Blood Pressure 98/59 L 10/09/18 16:20 O2 Sat by Pulse Oximetry (%) 100 10/09/18 16:20 Constitutional: Yes: Well Nourished, No Distress, Calm HENT: Yes: Atraumatic Cardiovascular: Yes: Regular Rate and Rhythm Respiratory: Yes: Regular, CTA Bilaterally Gastrointestinal: Yes: Normal Bowel Sounds, Soft Musculoskeletal: Yes: WNL Extremities: Yes: Other Wound/Incision: Yes: Dressing Dry and Intact Neurological: Yes: Alert, Oriented Psychiatric: Yes: Alert, Oriented Labs: CBC, BMP 10/09/18 01:51 10/09/18 01:51 Imaging - Results X-ray: Report Reviewed, Image Reviewed Cat Scan: Report Reviewed, Image Reviewed Assessment/Plan Problem List - Problems (1) Abscess of left upper arm and forearm Code(s): L02.414 - CUTANEOUS ABSCESS OF LEFT UPPER LIMB (2) Cellulitis Code(s): L03.90 - CELLULITIS, UNSPECIFIED (3) Cocaine dependence, uncomplicated Code(s): F14.20 - COCAINE DEPENDENCE, UNCOMPLICATED necrotizing fascitis plan will start patient on vanco and zosyn await for all cx reports wound care rest as per the team
[2018-10-09] MEDS ORDERED: VANCOMYCIN 1,250 MG in DEXTROSE 5%-WATER - 250 ML IVPB SCH (17:00)
--- NOTE | 2018-10-09 17:57 | PN ---
Physical Exam: SUBJECTIVE: Patient seen and examined at bedside this morning. Patient is a 33 year old male with history of IV drug use on home Methadone 60mg daily, presented with left arm pain and redness for 2 days. Patient injects drugs. Two days ago, noted worsening of swelling, pain and redness of the left arm. Denies fever, chills, headache, dizziness, chest pain, SOB, palpitations, abdominal pain, diarrhea, urinary symptoms. OBJECTIVE: Vital Signs Period Temp Pulse Resp BP Sys/Rojas Pulse Ox Last 24 Hr 98.0 F-98.8 F 60-733 14-20 95-134/55-78 95-100 GENERAL: The patient is awake, alert, and fully oriented, in no acute distress. HEAD: Normal with no signs of trauma. EYES:PERRLA, EOMI, sclera anicteric, conjunctiva clear. NECK: Trachea midline, full range of motion, supple. LUNGS: Breath sounds equal, clear to auscultation bilaterally. HEART: Regular rate and rhythm, S1, S2 without murmur, rub or gallop. ABDOMEN: Soft, nontender, nondistended, normoactive bowel sounds. EXTREMITIES: 2+ pulses, warm, well-perfused, no edema. LUE: +redness, swelling, tenderness with induration at the antecubital fossa, extending proximally and distally. Redness noted to go beyond the line drawn. ROM of elbow limited due to pain. ROM of hand, wrist and shoulder intact. Laboratory Results - last 24 hr 10/09/18 10/09/18 10/09/18 01:51 01:51 01:51 WBC 10.7 H RBC 4.42 Hgb 13.9 Hct 39.8 MCV 90.0 MCH 31.3 MCHC 34.8 RDW 13.8 Plt Count 212 D MPV 8.5 Absolute Neuts (auto) 7.9 Neutrophils % 74.1 D Lymphocytes % 16.4 D Monocytes % 8.0 Eosinophils % 1.3 Basophils % 0.2 Nucleated RBC % 0 PT with INR 14.00 H INR 1.18 H Sodium 141 Potassium 3.8 Chloride 105 Carbon Dioxide 28 Anion Gap 8 BUN 21 H Creatinine 0.9 Creat Clearance w eGFR > 60 Random Glucose 98 Lactic Acid Calcium 8.4 L Total Bilirubin 0.6 AST 17 ALT 25 Alkaline Phosphatase 57 Total Protein 6.7 Albumin 3.3 L Urine Color Urine Appearance Urine pH Ur Specific [place] Urine Protein Urine Glucose (UA) Urine Ketones Urine Blood Urine Nitrite Urine Bilirubin Urine Urobilinogen Ur Leukocyte Esterase Opiates Screen Methadone Screen Barbiturate Screen Phencyclidine Screen Ur Amphetamines Screen MDMA (Ecstasy) Screen Benzodiazepines Screen Cocaine Screen U Marijuana (THC) Screen HIV 1&2 Antibody Screen HIV P24 Antigen 10/09/18 10/09/18 10/09/18 01:51 01:51 04:55 WBC RBC Hgb Hct MCV MCH MCHC RDW Plt Count MPV Absolute Neuts (auto) Neutrophils % Lymphocytes % Monocytes % Eosinophils % Basophils % Nucleated RBC % PT with INR INR Sodium Potassium Chloride Carbon Dioxide Anion Gap BUN Creatinine Creat Clearance w eGFR Random Glucose Lactic Acid 1.5 Calcium Total Bilirubin AST ALT Alkaline Phosphatase Total Protein Albumin Urine Color Straw Urine Appearance Clear Urine pH 6.0 Ur Specific [place] 1.055 H Urine Protein Negative Urine Glucose (UA) Negative Urine Ketones Negative Urine Blood Negative Urine Nitrite Negative Urine Bilirubin Negative Urine Urobilinogen Negative Ur Leukocyte Esterase Negative Opiates Screen Methadone Screen Barbiturate Screen Phencyclidine Screen Ur Amphetamines Screen MDMA (Ecstasy) Screen Benzodiazepines Screen Cocaine Screen U Marijuana (THC) Screen HIV 1&2 Antibody Screen Negative HIV P24 Antigen Negative 10/09/18 10/09/18 04:55 05:25 WBC RBC Hgb Hct MCV MCH MCHC RDW Plt Count MPV Absolute Neuts (auto) Neutrophils % Lymphocytes % Monocytes % Eosinophils % Basophils % Nucleated RBC % PT with INR INR Sodium Potassium Chloride Carbon Dioxide Anion Gap BUN Creatinine Creat Clearance w eGFR Random Glucose Lactic Acid 0.7 Calcium Total Bilirubin AST ALT Alkaline Phosphatase Total Protein Albumin Urine Color Urine Appearance Urine pH Ur Specific [place] Urine Protein Urine Glucose (UA) Urine Ketones Urine Blood Urine Nitrite Urine Bilirubin Urine Urobilinogen Ur Leukocyte Esterase Opiates Screen Positive A* Methadone Screen Positive A* Barbiturate Screen Negative Phencyclidine Screen Negative Ur Amphetamines Screen Negative MDMA (Ecstasy) Screen Negative Benzodiazepines Screen Negative Cocaine Screen Positive A* U Marijuana (THC) Screen Negative HIV 1&2 Antibody Screen HIV P24 Antigen Active Medications Generic Name Dose Route Start Last Admin Trade Name Freq PRN Reason Stop Dose Admin Acetaminophen 650 mg 10/09/18 06:19 Tylenol - PO Q4H PRN PAIN LEVEL 1-5 Acetaminophen 1,000 mg 10/09/18 10:01 Ofirmev Injection - IVPB Q6H PRN FEVER Fentanyl 50 mcg 10/09/18 13:48 Sublimaze Injection - IVPUSH Q5M PRN PAIN-PACU ORDER X 4 DOSES ONLY Lactated Ringer's 1,000 mls @ 125 mls/hr 10/09/18 14:00 Lactated Ringers Solution IV ASDIR SARAH Piperacillin Sod/Tazobactam 50 mls @ 100 mls/hr 10/09/18 18:00 Sod 3.375 gm/ Dextrose IVPB Q8H-IV SARAH Protocol Vancomycin HCl 1,250 mg/ 250 mls @ 250 mls/2 hr 10/10/18 13:00 Dextrose IVPB Q24H SARAH Protocol Clindamycin Phosphate 900 mg in 50 mls @ 100 mls/hr 10/09/18 18:00 Cleocin 900 Mg Premix Ivpb - IVPB Q8H-IV SARAH Protocol Morphine Sulfate 2 mg 10/09/18 06:19 10/09/18 09:12 Morphine Sulfate IVPUSH 2 mg Q4H PRN Administration PAIN LEVEL 7 - 10 Ondansetron HCl 4 mg 10/09/18 13:48 Zofran Injection IVPUSH Q6H PRN NAUSEA AND/OR VOMITING Oxycodone HCl 5 mg 10/09/18 13:48 Roxicodone - PO 10/10/18 13:47 Q4H PRN PAIN LEVEL 1-5 Oxycodone HCl 10 mg 10/09/18 13:48 Roxicodone - PO 10/10/18 13:47 Q4H PRN PAIN LEVEL 6-10 ASSESSMENT/PLAN: Patient is a 33 year old male with history of IV drug use on home Methadone 60mg daily, presented with left arm pain and redness for 2 days. #Left arm and forearm abscess: Necrotizing fasciitis -POD 0: Incision and drainage of abscess, L elbow and forearm, wound debridement of skin and necrotic tissue -Dr. Guerrier consulted. Recommendations appreciated. -ID (Dr. Mallory) consulted. REcommendations appreciated. -Blood culture -Wound culture of abscess sent -Started Vancomycin 1500mg BID -Zosyn 4.5gm q8h -Clindamycin 600mg q6h added for toxin neutralization -Pain management as per anes: Tylenol 650mg, Oxycodone 5mg and 10mg PRN #Polysubstance abuse -On Methadone 60ng daily -U tox: opiates, methadone, cocaine positive -HIV negative -HCV pending #FEN -IV LR @125ml/hr -Electrolytes wnl, routine bmp monitoring -Regular diet #Prophylaxis -SCDs #Disposition -full code -med-surg Visit type - Emergency Visit Emergency Visit: Yes ED Registration Date: 10/09/18 Care time: The patient presented to the Emergency Department on the above date and was hospitalized for further evaluation of their emergent condition. - New Patient This patient is new to me today: Yes Date on this admission: 10/09/18 - Critical Care Critical Care patient: No
[2018-10-09] MEDS ORDERED: CLINDAMYCIN 900 MG PREMIX IVPB 900 MG/50 ML BAG IVPB SCH (18:00)
[2018-10-09] MEDS: LACTATED RINGERS SOLUTION 1,000 ML IV SCH (18:18)
[2018-10-09] MEDS: ACETAMINOPHEN 325 MG TABLET (FP) PO PRN (18:19)
--- NOTE | 2018-10-09 18:43 | PN ---
Teaching Attending Note Name of Resident: Alyce Pacheco ATTENDING PHYSICIAN STATEMENT I saw and evaluated the patient. I reviewed the resident's note and discussed the case with the resident. I agree with the resident's findings and plan as documented. SUBJECTIVE: seen before his sx. reported pain in L forearm and antecubital area. no fever or chills. no other complaints no numbness in hand and still able to move fingers. OBJECTIVE: NAD CV: RRR, No MRG Lungs: CTAB Ext : no edema on LE . LUE with a fluctuated area in antecubital area with surrounding erythema . erythema expended beyond the upper line. radial pulse 2 + and has nl sensation to light touch in L hand. slightly decreased in L fore arm where inflammation is . ASSESSMENT AND PLAN: 33 y/o man with h/o polysubstance abuse, who presented with L arm pain and swelling after IVDU. 1- L antecubital abscess and necrotizing fasciitis: - vanco and zosyn . - add clinda for toxin neutralizatin - follow blood cx . - wound cx was sent form OR. will confirm with micro tomorrow - IVF 2- Heroin abuse. while on Methadone. - will cont Methadone. - consult substance abuse - avoid narcotics while on methadone if possible 3- he denies DM. will check A1c DVT PX
[2018-10-09] MEDS ORDERED: NICOTINE 14 MG/24 HOURS TOPICAL PATCH TD SCH (19:15)
[2018-10-09] MEDS ORDERED: DEXTROSE 5%-WATER - 50 ML IVPB ONE (19:42)
[2018-10-09] MEDS ORDERED: PIPERACILLIN/TAZOBACTAM 3.375 GM VIAL IVPB ONE (19:42)
[2018-10-09] MEDS: PIPERACILLIN/TAZOB 3.375 GM 3.375 GM in DEXTROSE 5%-WATER - 50 ML IVPB SCH (19:52)
[2018-10-09] MEDS: NICOTINE 14 MG/24 HOURS TOPICAL PATCH TD SCH (20:12)
[2018-10-10] MEDS ORDERED: PIPERACILLIN/TAZOBACTAM 3.375 GM VIAL IVPB ONE ×4 (01:27→23:17)
[2018-10-10] MEDS ORDERED: DEXTROSE 5%-WATER - 50 ML IVPB ONE ×4 (01:27→23:17)
[2018-10-10] MEDS: PIPERACILLIN/TAZOB 3.375 GM 3.375 GM in DEXTROSE 5%-WATER - 50 ML IVPB SCH ×3 (01:42→17:27)
[2018-10-10] MEDS ORDERED: VANCOMYCIN 1 GRAM (PRE-DOCKED) 1,000 MG/250 ML BAG IVPB SCH (03:00)
[2018-10-10] MEDS: CLINDAMYCIN 600MG PREMIX IVPB 600 MG/50 ML BAG IVPB SCH ×4 (03:18→20:16)
[2018-10-10] MEDS: oxyCODONE HCL 5 MG TABLET PO PRN ×4 (03:44→20:15)
[2018-10-10] MEDS: METHADONE HCL 40 MG DISPERSABLE TABLET PO SCH (05:58)
[2018-10-10 07:41] LABS: BASO % 0.1 % (0-2.0); EOS % 0.1 % (0-4.5); HEMATOCRIT 39.9 % (35.4-49); HEMOGLOBIN 12.8 GM/dL (11.7-16.9); LYMPH % 8.7 % (8-40); MCH 29.1 pg (25.7-33.7); MCHC 32.2 g/dl (32.0-35.9); MEAN CELL VOLUME 90.5 fl (80-96); MEAN PLT VOLUME 8.5 fl (7.5-11.1); MONO % 4.6 % (3.8-10.2); NEUT % 86.5 % (42.8-82.8); PLATELET COUNT 195 K/MM3 (134-434); RBC 4.41 M/mm3 (4.00-5.60); RDW 13.5 % (11.9-15.9); WHITE BLOOD COUNT 12.9 K/mm3 (4.0-10.0)
[2018-10-10 08:22] LABS: ANION GAP 9 MMOL/L (8-16); BLOOD UREA NITROGEN 14 mg/dL (7-18); CALCIUM 8.6 mg/dL (8.5-10.1); CHLORIDE 107 mmol/L (98-107); CO2 23 mmol/L (21-32); CREATININE 0.7 mg/dL (0.55-1.3); GLUCOSE,RANDOM 111 mg/dL (74-106); MAGNESIUM 2.2 mg/dL (1.8-2.4); PHOSPHOROUS 2.9 mg/dL (2.5-4.9); POTASSIUM 4.1 mmol/L (3.5-5.1); SODIUM 138 mmol/L (136-145)
--- NOTE | 2018-10-10 08:23 | PN ---
Progress Note (short form) - Note Progress Note: Post op day#1.S/P I&D Of left arm abscess under GA uneventful.Patient stable.No any anesthesia related problem.Patient DC from the anesthesia care.
[2018-10-10] MEDS: NICOTINE 14 MG/24 HOURS TOPICAL PATCH TD SCH (09:30)
[2018-10-10] MEDS ORDERED: PT OWN MED DRAWER 7, Y5N ONE (12:09)
--- NOTE | 2018-10-10 13:59 | PN ---
Progress Note, Physician History of Present Illness: patient stable no new issues feeling good dressing done by the staff - Current Medication List Current Medications: Active Medications Acetaminophen (Tylenol -) 650 mg PO Q4H PRN PRN Reason: PAIN LEVEL 1-5 Last Admin: 10/09/18 18:19 Dose: 650 mg Lactated Ringer's (Lactated Ringers Solution) 1,000 mls @ 125 mls/hr IV ASDIR SARAH Last Admin: 10/09/18 18:18 Dose: 125 mls/hr Piperacillin Sod/Tazobactam (Sod 3.375 gm/ Dextrose) 50 mls @ 100 mls/hr IVPB Q8H-IV SARAH; Protocol Last Admin: 10/10/18 09:23 Dose: 100 mls/hr Vancomycin HCl 1,250 mg/ (Dextrose) 250 mls @ 250 mls/2 hr IVPB Q24H SARAH; Protocol Clindamycin Phosphate (Cleocin 600 Mg Premix Ivpb -) 600 mg in 50 mls @ 100 mls /hr IVPB Q6H-IV SARAH; Protocol Last Admin: 10/10/18 08:26 Dose: 100 mls/hr Methadone HCl (Dolophine -) 60 mg PO DAILY@0600 [facility] Last Admin: 10/10/18 05:58 Dose: 60 mg Nicotine (Nicoderm Patch -) 14 mg TD DAILY [facility] Last Admin: 10/10/18 09:30 Dose: 14 mg - Objective Vital Signs: Vital Signs Temperature 98.1 F 10/10/18 09:00 Pulse Rate 72 10/10/18 09:00 Respiratory Rate 20 10/10/18 09:00 Blood Pressure 98/55 L 10/10/18 09:00 O2 Sat by Pulse Oximetry (%) 96 10/10/18 09:00 Constitutional: Yes: No Distress, Calm Cardiovascular: Yes: Regular Rate and Rhythm Respiratory: Yes: Regular, CTA Bilaterally Gastrointestinal: Yes: Normal Bowel Sounds, Soft Musculoskeletal: Yes: Other Extremities: Yes: Other Wound/Incision: Yes: Dressing Dry and Intact Neurological: Yes: Alert, Oriented Psychiatric: Yes: Alert, Oriented Labs: CBC, BMP 10/10/18 06:30 10/10/18 06:30 INR, PTT INR 1.18 (0.83-1.09) H 10/09/18 01:51 Assessment/Plan Problem List - Problems (1) Abscess of left upper arm and forearm Code(s): L02.414 - CUTANEOUS ABSCESS OF LEFT UPPER LIMB (2) Cellulitis Code(s): L03.90 - CELLULITIS, UNSPECIFIED (3) Cocaine dependence, uncomplicated Code(s): F14.20 - COCAINE DEPENDENCE, UNCOMPLICATED necrotizing fascitis plan we will continue current abx close watch wound care rest as per surgery and the team
[2018-10-10] MEDS: VANCOMYCIN 1,250 MG in DEXTROSE 5%-WATER - 250 ML IVPB SCH (14:06)
--- NOTE | 2018-10-10 15:15 | PN ---
Teaching Attending Note Name of Resident: Heidy Story ATTENDING PHYSICIAN STATEMENT I saw and evaluated the patient. I reviewed the resident's note and discussed the case with the resident. I agree with the resident's findings and plan as documented. SUBJECTIVE: No fever or chills. minimal pain in L arm at surgical sight . no numbness or tingling in hands. numbness in forearm has resolved. OBJECTIVE: NAD CV: RRR, No MRG Lungs: CTAB Ext : LUE with an 3x3 cm dep wound with clean base, no discharge. surrounding erythema has improved and now only centered around wound and antecubital area. RP 2+ . nl hand sensation and movement no edema or erythema on LE ASSESSMENT AND PLAN: 33 y/o man with h/o polysubstance abuse, who presented with L arm pain and swelling after IVDU. 1- L antecubital abscess and necrotizing fasciitis, s/p debridement and drainage 10/09/18 - cont vanco , zosyn, and clinda - follow wound cx and blood cx - nt form OR. will confirm with micro tomorrow - DC IVF 2- Heroin abuse. - cont Methadone. - d/w Substance abuse yesterday - cont oxycodone pRN 3- A1c 5.3. No DM DVT PX
[2018-10-10] MEDS: LACTATED RINGERS SOLUTION 1,000 ML IV SCH (17:10)
--- NOTE | 2018-10-10 20:50 | PN ---
Physical Exam: SUBJECTIVE: Patient seen and examined at bedside this morning. no acute events overnight. Patient is eating breakfast. Minimally complains of pain, but has been receiving pain medications q4h. Denies fever, chills, headache, dizziness, chest pain, SOB, palpitations, abdominal pain, diarrhea, urinary symptoms. OBJECTIVE: Vital Signs Period Temp Pulse Resp BP Sys/Rojas Pulse Ox Last 24 Hr 97.8 F-98.2 F 56-75 18-20 98-142/54-67 95-96 GENERAL: The patient is awake, alert, and fully oriented, in no acute distress. HEAD: Normal with no signs of trauma. EYES:PERRLA, EOMI, sclera anicteric, conjunctiva clear. NECK: Trachea midline, full range of motion, supple. LUNGS: Breath sounds equal, clear to auscultation bilaterally. HEART: Regular rate and rhythm, S1, S2 without murmur, rub or gallop. ABDOMEN: Soft, nontender, nondistended, normoactive bowel sounds. EXTREMITIES: 2+ pulses, warm, well-perfused, no edema. LUE: +Wound with surrounding erythema at antecubital area, clean and dry. ROM and sensation intact. Laboratory Results - last 24 hr 10/10/18 10/10/18 10/10/18 06:30 06:30 06:30 WBC 12.9 H RBC 4.41 Hgb 12.8 Hct 39.9 MCV 90.5 MCH 29.1 MCHC 32.2 RDW 13.5 Plt Count 195 MPV 8.5 Absolute Neuts (auto) 11.2 H Neutrophils % 86.5 H Lymphocytes % 8.7 D Monocytes % 4.6 Eosinophils % 0.1 D Basophils % 0.1 Nucleated RBC % 0 Sodium 138 Potassium 4.1 Chloride 107 Carbon Dioxide 23 Anion Gap 9 BUN 14 Creatinine 0.7 Creat Clearance w eGFR > 60 Random Glucose 111 H Hemoglobin A1c % 5.6 Calcium 8.6 Phosphorus 2.9 Magnesium 2.2 Active Medications Generic Name Dose Route Start Last Admin Trade Name Freq PRN Reason Stop Dose Admin Acetaminophen 650 mg 10/09/18 06:19 10/09/18 18:19 Tylenol - PO 650 mg Q4H PRN Administration PAIN LEVEL 1-5 Piperacillin Sod/Tazobactam 50 mls @ 100 mls/hr 10/09/18 18:00 10/10/18 17:27 Sod 3.375 gm/ Dextrose IVPB 100 mls/hr Q8H-IV SARAH Administration Protocol Vancomycin HCl 1,250 mg/ 250 mls @ 250 mls/2 hr 10/10/18 13:00 10/10/18 14:06 Dextrose IVPB 250 mls/2 hr Q24H SARAH Administration Protocol Clindamycin Phosphate 600 mg in 50 mls @ 100 mls/hr 10/10/18 03:00 10/10/18 20:16 Cleocin 600 Mg Premix Ivpb - IVPB 100 mls/hr Q6H-IV SARAH Administration Protocol Methadone HCl 60 mg 10/10/18 06:00 10/10/18 05:58 Dolophine - PO 60 mg DAILY@0600 SARAH Administration Nicotine 14 mg 10/09/18 19:15 10/10/18 09:30 Nicoderm Patch - TD 14 mg DAILY SARAH Administration Oxycodone HCl 5 mg 10/10/18 17:09 10/10/18 20:15 Roxicodone - PO 5 mg Q4H PRN Administration PAIN LEVEL 7 - 10 ASSESSMENT/PLAN: Patient is a 33 year old male with history of IV drug use on home Methadone 60mg daily, presented with left arm pain and redness for 2 days. #Left arm and forearm abscess: Necrotizing fasciitis -POD 1: Incision and drainage of abscess, L elbow and forearm, wound debridement of skin and necrotic tissue -Dr. Guerrier consulted. Recommendations appreciated. -ID (Dr. Mallory) consulted. REcommendations appreciated. -Blood culture- negative -Wound culture of abscess pending -Vancomycin 1250mg daily -Zosyn 3.375gm q8h -Clindamycin 600mg q6h added for toxin neutralization -Pain management as per anes: Tylenol 650mg, Oxycodone 5mg PRN #Polysubstance abuse -On Methadone 60ng daily -U tox: opiates, methadone, cocaine positive -HIV negative -HCVnegative #FEN -Not on any standing fluids. -Electrolytes wnl, routine bmp monitoring -Regular diet #Prophylaxis -SCDs, early ambulation #Disposition -full code -med-surg Visit type - Emergency Visit Emergency Visit: Yes ED Registration Date: 10/09/18 Care time: The patient presented to the Emergency Department on the above date and was hospitalized for further evaluation of their emergent condition. - New Patient This patient is new to me today: No - Critical Care Critical Care patient: No
--- NOTE | 2018-10-10 22:39 | PN ---
[facility] Progress Note (SOAP) Subjective: patient referred for consultation for opiate use, reports work- related injury approximately 5 years ago , had rx for Percocet and fentanyl TD , then started illicit use of Percocet and Oxycodone , incarcerated approximately 3 years ago for petty jordan ( shoplifting to support financing Oxycodone use ) ,started using heroin about 8-9 mo ago upon release from incarceration , introduced by family and friends - lives w/ brother who uses heroin IV . patient reports he started using via inhalation about 2 years ago , has been sober at various intervals with detox / rehab , most recenly use IVDU and had swelling in the left UE , dx w/ necrotizing fasciitis , s/p surgical intervention yesterday , c/o moderate pain in the left arm . On MMTP since a few weeks ago , current daily dose 60 mg , prn Oxycodone 5 mg q 4 hrs prn . Meds reviewed . Home Medication List Medication Instructions Recorded Confirmed Type Methadone [Dolophine -] 60 mg PO DAILY 10/09/18 10/09/18 History Active Medications Generic Name Dose Route Start Last Admin Trade Name Freq PRN Reason Stop Dose Admin Acetaminophen 650 mg 10/09/18 06:19 10/09/18 18:19 Tylenol - PO 650 mg Q4H PRN Administration PAIN LEVEL 1-5 Piperacillin Sod/Tazobactam 50 mls @ 100 mls/hr 10/09/18 18:00 10/10/18 17:27 Sod 3.375 gm/ Dextrose IVPB 100 mls/hr Q8H-IV SARAH Administration Protocol Vancomycin HCl 1,250 mg/ 250 mls @ 250 mls/2 hr 10/10/18 13:00 10/10/18 14:06 Dextrose IVPB 250 mls/2 hr Q24H SARAH Administration Protocol Clindamycin Phosphate 600 mg in 50 mls @ 100 mls/hr 10/10/18 03:00 10/10/18 20:16 Cleocin 600 Mg Premix Ivpb - IVPB 100 mls/hr Q6H-IV SARAH Administration Protocol Methadone HCl 60 mg 10/10/18 06:00 10/10/18 05:58 Dolophine - PO 60 mg DAILY@0600 SARAH Administration Nicotine 14 mg 10/09/18 19:15 10/10/18 09:30 Nicoderm Patch - TD 14 mg DAILY SARAH Administration Oxycodone HCl 5 mg 10/10/18 17:09 10/10/18 20:15 Roxicodone - PO 5 mg Q4H PRN Administration PAIN LEVEL 7 - 10 Objective: 10/10/18 22:40 wnwd , resting in bed comfortably , NAD Vital Signs - 24 hr 10/10/18 10/10/18 10/10/18 01:00 05:00 09:00 Temperature 98.2 F 97.8 F 98.1 F Pulse Rate 59 L 56 L 72 Respiratory 20 20 20 Rate Blood Pressure 115/67 119/55 L 98/55 L O2 Sat by Pulse 96 Oximetry (%) 10/10/18 10/10/18 10/10/18 14:28 16:15 21:00 Temperature 97.9 F 98.2 F Pulse Rate 75 63 Respiratory 18 20 Rate Blood Pressure 142/64 105/56 L O2 Sat by Pulse 96 Oximetry (%) 10/10/18 22:00 Temperature 98.1 F Pulse Rate 63 Respiratory 18 Rate Blood Pressure 111/63 O2 Sat by Pulse Oximetry (%) Abnormal Lab Results 10/10/18 10/10/18 06:30 06:30 WBC 12.9 H Absolute Neuts (auto) 11.2 H Neutrophils % 86.5 H Random Glucose 111 H Assessment: opioid dependence on MMTP left UE pain s/p necrotizing fasciitis . Plan: continue current meds . patient expressed interest in rehab after d/c from the hospital and afterwards long-term residential rehab .
[2018-10-11] MEDS: PIPERACILLIN/TAZOB 3.375 GM 3.375 GM in DEXTROSE 5%-WATER - 50 ML IVPB SCH ×3 (01:22→17:53)
[2018-10-11] MEDS: CLINDAMYCIN 600MG PREMIX IVPB 600 MG/50 ML BAG IVPB SCH ×2 (03:03→09:23)
[2018-10-11] MEDS: METHADONE HCL 40 MG DISPERSABLE TABLET PO SCH (05:32)
[2018-10-11] MEDS ORDERED: PIPERACILLIN/TAZOBACTAM 3.375 GM VIAL IVPB ONE ×2 (08:58→17:23)
[2018-10-11] MEDS ORDERED: DEXTROSE 5%-WATER - 50 ML IVPB ONE ×2 (08:59→17:24)
[2018-10-11 09:39] LABS: BASO % 0.8 % (0-2.0); EOS % 2.8 % (0-4.5); HEMATOCRIT 36.4 % (35.4-49); HEMOGLOBIN 12.7 GM/dL (11.7-16.9); LYMPH % 38.1 % (8-40); MCH 31.5 pg (25.7-33.7); MEAN CELL VOLUME 89.9 fl (80-96); MEAN PLT VOLUME 8.2 fl (7.5-11.1); MONO % 7.5 % (3.8-10.2); NEUT % 50.8 % (42.8-82.8); PLATELET COUNT 208 K/MM3 (134-434); RBC 4.05 M/mm3 (4.00-5.60); RDW 13.6 % (11.9-15.9); WHITE BLOOD COUNT 6.9 K/mm3 (4.0-10.0)
[2018-10-11] MEDS: NICOTINE 14 MG/24 HOURS TOPICAL PATCH TD SCH (10:18)
[2018-10-11 10:24] LABS: ANION GAP 8 MMOL/L (8-16); BLOOD UREA NITROGEN 18 mg/dL (7-18); CALCIUM 8.1 mg/dL (8.5-10.1); CHLORIDE 111 mmol/L (98-107); CO2 23 mmol/L (21-32); CREATININE 0.8 mg/dL (0.55-1.3); GLUCOSE,RANDOM 77 mg/dL (74-106); MAGNESIUM 2.2 mg/dL (1.8-2.4); PHOSPHOROUS 4.3 mg/dL (2.5-4.9); POTASSIUM 4.1 mmol/L (3.5-5.1); SODIUM 142 mmol/L (136-145)
[2018-10-11] MEDS: oxyCODONE HCL 5 MG TABLET PO PRN ×2 (11:29→18:11)
--- NOTE | 2018-10-11 12:18 | PN ---
Progress Note, Physician - Current Medication List Current Medications: Active Medications Acetaminophen (Tylenol -) 650 mg PO Q4H PRN PRN Reason: PAIN LEVEL 1-5 Last Admin: 10/09/18 18:19 Dose: 650 mg Piperacillin Sod/Tazobactam (Sod 3.375 gm/ Dextrose) 50 mls @ 100 mls/hr IVPB Q8H-IV SARAH; Protocol Last Admin: 10/11/18 09:23 Dose: 100 mls/hr Vancomycin HCl 1,250 mg/ (Dextrose) 250 mls @ 250 mls/2 hr IVPB Q24H SARAH; Protocol Last Admin: 10/10/18 14:06 Dose: 250 mls/2 hr Clindamycin Phosphate (Cleocin 600 Mg Premix Ivpb -) 600 mg in 50 mls @ 100 mls /hr IVPB Q6H-IV SARAH; Protocol Last Admin: 10/11/18 09:23 Dose: 100 mls/hr Methadone HCl (Dolophine -) 60 mg PO DAILY@0600 [facility] Last Admin: 10/11/18 05:32 Dose: 60 mg Nicotine (Nicoderm Patch -) 14 mg TD DAILY [facility] Last Admin: 10/11/18 10:18 Dose: 14 mg Oxycodone HCl (Roxicodone -) 5 mg PO Q4H PRN PRN Reason: PAIN LEVEL 7 - 10 Last Admin: 10/11/18 11:29 Dose: 5 mg - Objective Vital Signs: Vital Signs Temperature 97.8 F 10/11/18 06:04 Pulse Rate 55 L 10/11/18 06:04 Respiratory Rate 18 10/11/18 06:04 Blood Pressure 90/48 L 10/11/18 06:04 O2 Sat by Pulse Oximetry (%) 96 10/10/18 21:00 Labs: CBC, BMP 10/11/18 08:30 10/11/18 08:30 INR, PTT INR 1.18 (0.83-1.09) H 10/09/18 01:51 Problem List - Problems (1) Abscess of left upper arm and forearm Code(s): L02.414 - CUTANEOUS ABSCESS OF LEFT UPPER LIMB (2) Cellulitis Code(s): L03.90 - CELLULITIS, UNSPECIFIED (3) Cocaine dependence, uncomplicated Code(s): F14.20 - COCAINE DEPENDENCE, UNCOMPLICATED Assessment/Plan Patient is afebrile. Left elbow movement , without limitation. Wound is cleam with minimAL DRAINAGE. sURROUNDING INFLAMMATORY REACTION HAS IMPROVED. Culture : No growth so far. Continue antibiotics. Consider discharge tomorrow. Referral to wound center for wound care. Drug rehab consultation.
[2018-10-11] MEDS ORDERED: PT OWN MED DRAWER 7, Y5N ONE (12:20)
--- NOTE | 2018-10-11 12:21 | PN ---
Progress Note, Physician History of Present Illness: patient stable surgery note noted wound description noted cx still pending - Current Medication List Current Medications: Active Medications Acetaminophen (Tylenol -) 650 mg PO Q4H PRN PRN Reason: PAIN LEVEL 1-5 Last Admin: 10/09/18 18:19 Dose: 650 mg Piperacillin Sod/Tazobactam (Sod 3.375 gm/ Dextrose) 50 mls @ 100 mls/hr IVPB Q8H-IV SARAH; Protocol Last Admin: 10/11/18 09:23 Dose: 100 mls/hr Vancomycin HCl 1,250 mg/ (Dextrose) 250 mls @ 250 mls/2 hr IVPB Q24H SARAH; Protocol Last Admin: 10/10/18 14:06 Dose: 250 mls/2 hr Methadone HCl (Dolophine -) 60 mg PO DAILY@0600 [facility] Last Admin: 10/11/18 05:32 Dose: 60 mg Nicotine (Nicoderm Patch -) 14 mg TD DAILY [facility] Last Admin: 10/11/18 10:18 Dose: 14 mg Oxycodone HCl (Roxicodone -) 5 mg PO Q4H PRN PRN Reason: PAIN LEVEL 7 - 10 Last Admin: 10/11/18 11:29 Dose: 5 mg - Objective Vital Signs: Vital Signs Temperature 97.8 F 10/11/18 06:04 Pulse Rate 55 L 10/11/18 06:04 Respiratory Rate 18 10/11/18 06:04 Blood Pressure 90/48 L 10/11/18 06:04 O2 Sat by Pulse Oximetry (%) 96 10/10/18 21:00 Constitutional: Yes: No Distress, Calm Cardiovascular: Yes: Regular Rate and Rhythm Respiratory: Yes: Regular, CTA Bilaterally Gastrointestinal: Yes: Normal Bowel Sounds, Soft Musculoskeletal: Yes: WNL Extremities: Yes: Other Wound/Incision: Yes: Dressing Dry and Intact Neurological: Yes: Alert, Oriented Psychiatric: Yes: Alert, Oriented Labs: CBC, BMP 10/11/18 08:30 10/11/18 08:30 INR, PTT INR 1.18 (0.83-1.09) H 10/09/18 01:51 Assessment/Plan Problem List - Problems (1) Abscess of left upper arm and forearm Code(s): L02.414 - CUTANEOUS ABSCESS OF LEFT UPPER LIMB (2) Cellulitis Code(s): L03.90 - CELLULITIS, UNSPECIFIED (3) Cocaine dependence, uncomplicated Code(s): F14.20 - COCAINE DEPENDENCE, UNCOMPLICATED necrotizing fascitis plan we will continue current abx will stop clinda await for cx reports rest as per the team
[2018-10-11] MEDS: VANCOMYCIN 1,250 MG in DEXTROSE 5%-WATER - 250 ML IVPB SCH (12:55)
--- NOTE | 2018-10-11 13:05 | PN ---
Progress Note, Physician - Current Medication List Current Medications: Active Medications Acetaminophen (Tylenol -) 650 mg PO Q4H PRN PRN Reason: PAIN LEVEL 1-5 Last Admin: 10/09/18 18:19 Dose: 650 mg Piperacillin Sod/Tazobactam (Sod 3.375 gm/ Dextrose) 50 mls @ 100 mls/hr IVPB Q8H-IV SARAH; Protocol Last Admin: 10/11/18 09:23 Dose: 100 mls/hr Vancomycin HCl 1,250 mg/ (Dextrose) 250 mls @ 250 mls/2 hr IVPB Q24H SARAH; Protocol Last Admin: 10/11/18 12:55 Dose: 250 mls/2 hr Methadone HCl (Dolophine -) 60 mg PO DAILY@0600 [facility] Last Admin: 10/11/18 05:32 Dose: 60 mg Nicotine (Nicoderm Patch -) 14 mg TD DAILY [facility] Last Admin: 10/11/18 10:18 Dose: 14 mg Oxycodone HCl (Roxicodone -) 5 mg PO Q4H PRN PRN Reason: PAIN LEVEL 7 - 10 Last Admin: 10/11/18 11:29 Dose: 5 mg - Objective Vital Signs: Vital Signs Temperature 97.8 F 10/11/18 06:04 Pulse Rate 55 L 10/11/18 06:04 Respiratory Rate 18 10/11/18 06:04 Blood Pressure 90/48 L 10/11/18 06:04 O2 Sat by Pulse Oximetry (%) 96 10/10/18 21:00 Labs: CBC, BMP 10/11/18 08:30 10/11/18 08:30 INR, PTT INR 1.18 (0.83-1.09) H 10/09/18 01:51 Problem List - Problems (1) Abscess of left upper arm and forearm Code(s): L02.414 - CUTANEOUS ABSCESS OF LEFT UPPER LIMB (2) Cellulitis Code(s): L03.90 - CELLULITIS, UNSPECIFIED (3) Cocaine dependence, uncomplicated Code(s): F14.20 - COCAINE DEPENDENCE, UNCOMPLICATED Assessment/Plan Cultures are positive for MRSA. Continue antibiotics as per ID.
[2018-10-11] MEDS: ACETAMINOPHEN 325 MG TABLET (FP) PO PRN (16:50)
--- NOTE | 2018-10-11 17:30 | PN ---
Progress Note (short form) - Note Progress Note: Subjective: No fever or chills. sleeping and did not want t participate in conversation Objective: Vital Signs: Last Vital Signs Temp Pulse Resp BP Pulse Ox 97.8 F 51 L 20 90/45 L 96 10/11/18 16:20 10/11/18 16:20 10/11/18 16:20 10/11/18 16:20 10/10/18 21:00 Laboratory Results - last 24 hr 10/11/18 10/11/18 08:30 08:30 WBC 6.9 RBC 4.05 Hgb 12.7 Hct 36.4 MCV 89.9 MCH 31.5 MCHC 35.0 RDW 13.6 Plt Count 208 MPV 8.2 Absolute Neuts (auto) 3.5 Neutrophils % 50.8 D Lymphocytes % 38.1 D Monocytes % 7.5 Eosinophils % 2.8 D Basophils % 0.8 D Nucleated RBC % 0 Sodium 142 Potassium 4.1 Chloride 111 H Carbon Dioxide 23 Anion Gap 8 BUN 18 Creatinine 0.8 Creat Clearance w eGFR > 60 Random Glucose 77 Calcium 8.1 L Phosphorus 4.3 Magnesium 2.2 Physical Exam: NAD, sleeping. not cooperative CV: RRR, No MRG Lungs: CTAB anteriorly Ext : LUE with clean bandage , not removed due to patient's poor participation. L forearm with no edema , RP 2+ . nl color and warmth ASSESSMENT AND PLAN: 33 y/o man with h/o polysubstance abuse, who presented with L arm pain and swelling after IVDU. 1- L antecubital abscess and necrotizing fasciitis, s/p debridement and drainage 10/09/18 - wound with presumptive MRSA - d/W Dr. Mallory, cont vanco and zosyn. clinda stopped - check vanco trough before tomorrow's dose 2- Heroin abuse. - cont Methadone. - cont oxycodone pRN 3- A1c 5.3. No DM DVT PX Visit type - Emergency Visit Emergency Visit: Yes ED Registration Date: 10/09/18 Care time: The patient presented to the Emergency Department on the above date and was hospitalized for further evaluation of their emergent condition. - New Patient This patient is new to me today: No - Critical Care Critical Care patient: No
[2018-10-12] MEDS ORDERED: PIPERACILLIN/TAZOBACTAM 3.375 GM VIAL IVPB ONE ×2 (00:45→10:17)
[2018-10-12] MEDS ORDERED: DEXTROSE 5%-WATER - 50 ML IVPB ONE ×2 (00:45→10:17)
[2018-10-12] MEDS: oxyCODONE HCL 5 MG TABLET PO PRN ×3 (02:21→15:21)
[2018-10-12] MEDS: PIPERACILLIN/TAZOB 3.375 GM 3.375 GM in DEXTROSE 5%-WATER - 50 ML IVPB SCH ×2 (02:22→10:20)
[2018-10-12] MEDS ORDERED: METHADONE HCL 10 MG TABLET ONE (05:45)
[2018-10-12] MEDS ORDERED: METHADONE HCL 40 MG DISPERSABLE TABLET ONE (05:45)
[2018-10-12] MEDS: METHADONE 40 MG, METHADONE 20 MG PO SCH (06:10)
[2018-10-12] MEDS: NICOTINE 14 MG/24 HOURS TOPICAL PATCH TD SCH (10:20)
--- NOTE | 2018-10-12 14:30 | PN ---
Progress Note, Physician History of Present Illness: patient stable no new issues dressing changed - Current Medication List Current Medications: Active Medications Acetaminophen (Tylenol -) 650 mg PO Q4H PRN PRN Reason: PAIN LEVEL 1-5 Last Admin: 10/11/18 16:50 Dose: 650 mg Vancomycin HCl 1,250 mg/ (Dextrose) 250 mls @ 250 mls/2 hr IVPB Q24H SARAH; Protocol Last Admin: 10/11/18 12:55 Dose: 250 mls/2 hr Methadone HCl 40 mg/ Methadone (HCl 20 mg) 60 mg PO DAILY@0600 [facility] Last Admin: 10/12/18 06:10 Dose: 60 mg Nicotine (Nicoderm Patch -) 14 mg TD DAILY [facility] Last Admin: 10/12/18 10:20 Dose: 14 mg Oxycodone HCl (Roxicodone -) 5 mg PO Q4H PRN PRN Reason: PAIN LEVEL 7 - 10 Last Admin: 10/12/18 10:41 Dose: 5 mg - Objective Vital Signs: Vital Signs Temperature 97.6 F 10/12/18 10:00 Pulse Rate 56 L 10/12/18 10:00 Respiratory Rate 18 10/12/18 10:00 Blood Pressure 95/70 10/12/18 10:00 O2 Sat by Pulse Oximetry (%) 96 10/10/18 21:00 Constitutional: Yes: No Distress, Calm Cardiovascular: Yes: Regular Rate and Rhythm Respiratory: Yes: Regular, CTA Bilaterally Gastrointestinal: Yes: Normal Bowel Sounds, Soft Musculoskeletal: Yes: WNL Extremities: Yes: Other Neurological: Yes: Alert, Oriented Psychiatric: Yes: Alert, Oriented Labs: CBC, BMP 10/11/18 08:30 10/11/18 08:30 INR, PTT INR 1.18 (0.83-1.09) H 10/09/18 01:51 Assessment/Plan Problem List - Problems (1) Abscess of left upper arm and forearm Code(s): L02.414 - CUTANEOUS ABSCESS OF LEFT UPPER LIMB (2) Cellulitis Code(s): L03.90 - CELLULITIS, UNSPECIFIED (3) Cocaine dependence, uncomplicated Code(s): F14.20 - COCAINE DEPENDENCE, UNCOMPLICATED necrotizing fascitis plan continue vanco rest continue current mgmt wound care rest as per the team
[2018-10-12] MEDS ORDERED: VANCOMYCIN 500 MG in DEXTROSE 5%-WATER - 100 ML IVPB ONE (15:34)
--- NOTE | 2018-10-12 15:52 | PN ---
Teaching Attending Note Name of Resident: Mark Sung ATTENDING PHYSICIAN STATEMENT I saw and evaluated the patient. I reviewed the resident's note and discussed the case with the resident. I agree with the resident's findings and plan as documented. SUBJECTIVE: No fever or chills . No abd pain. L arm has improved . no numbness in L forearm or hand. OBJECTIVE: NAD CV: RRR, No MRG Lungs: CTAB b/l Ext : LUE with clean bandage which was removed. wound base is clean, with healthy tissue . no necrosis noted . surrounding erythema . L forearm with no edema , RP 2+ . nl color and warmth ASSESSMENT AND PLAN: 33 y/o man with h/o polysubstance abuse, who presented with L arm pain and swelling after IVDU. 1- L antecubital abscess and necrotizing fasciitis, s/p debridement and drainage 10/09/18 - wound cx with MRSA. sensitivity reviewed. - cont vanco - low vanco trough . cont but increase dose of vanco 2- Heroin abuse. - cont Methadone. - cont oxycodone pRN 3- A1c 5.3. No DM DVT PX
--- NOTE | 2018-10-12 15:53 | PN ---
Progress Note, Physician - Current Medication List Current Medications: Active Medications Acetaminophen (Tylenol -) 650 mg PO Q4H PRN PRN Reason: PAIN LEVEL 1-5 Last Admin: 10/11/18 16:50 Dose: 650 mg Vancomycin HCl 1,250 mg/ (Dextrose) 250 mls @ 250 mls/2 hr IVPB Q24H SARAH; Protocol Last Admin: 10/11/18 12:55 Dose: 250 mls/2 hr Vancomycin HCl 500 mg/ (Dextrose) 100 mls @ 100 mls/hr IVPB ONCE ONE; Protocol Stop: 10/12/18 16:33 Methadone HCl 40 mg/ Methadone (HCl 20 mg) 60 mg PO DAILY@0600 [facility] Last Admin: 10/12/18 06:10 Dose: 60 mg Nicotine (Nicoderm Patch -) 14 mg TD DAILY [facility] Last Admin: 10/12/18 10:20 Dose: 14 mg Oxycodone HCl (Roxicodone -) 5 mg PO Q4H PRN PRN Reason: PAIN LEVEL 7 - 10 Last Admin: 10/12/18 15:21 Dose: 5 mg - Objective Vital Signs: Vital Signs Temperature 97.3 F L 10/12/18 14:47 Pulse Rate 71 10/12/18 14:47 Respiratory Rate 18 10/12/18 14:47 Blood Pressure 109/61 10/12/18 14:47 O2 Sat by Pulse Oximetry (%) 95 10/12/18 09:00 Labs: CBC, BMP 10/11/18 08:30 10/11/18 08:30 INR, PTT INR 1.18 (0.83-1.09) H 10/09/18 01:51 Problem List - Problems (1) Abscess of left upper arm and forearm Code(s): L02.414 - CUTANEOUS ABSCESS OF LEFT UPPER LIMB (2) Cellulitis Code(s): L03.90 - CELLULITIS, UNSPECIFIED (3) Cocaine dependence, uncomplicated Code(s): F14.20 - COCAINE DEPENDENCE, UNCOMPLICATED Assessment/Plan Surgery: Patient feels better. Wound inspected: Wound is clean and granulating. There is no discharge. Swelling and redness has improved. Full range of motion in his left elbow. MRSA infection , IVDA. Patient could shower. No packing needed, wet to dry dressing. He is ready for discharge. Can be followed in the wound clinic. Antibiotics as per ID.
[2018-10-12] MEDS ORDERED: VANCOMYCIN 250 MG in DEXTROSE 5%-WATER - 100 ML IVPB ONE (16:45)
[2018-10-12] MEDS: VANCOMYCIN 1,250 MG in DEXTROSE 5%-WATER - 250 ML IVPB SCH (16:53)
--- NOTE | 2018-10-12 18:07 | PN ---
Physical Exam: SUBJECTIVE: Patient seen and examined at bedside this morning. No acute events overnight. Patient is feeling well. no fevers or chills. OBJECTIVE: Vital Signs Period Temp Pulse Resp BP Sys/Rojas Pulse Ox Last 24 Hr 97.3 F-98.0 F 55-71 18-18 95-122/61-76 95 GENERAL: The patient is awake, alert, and fully oriented, in no acute distress. HEAD: Normal with no signs of trauma. EYES:PERRLA, EOMI, sclera anicteric, conjunctiva clear. NECK: Trachea midline, full range of motion, supple. LUNGS: Breath sounds equal, clear to auscultation bilaterally. HEART: Regular rate and rhythm, S1, S2 without murmur, rub or gallop. ABDOMEN: Soft, nontender, nondistended, normoactive bowel sounds. EXTREMITIES: 2+ pulses, warm, well-perfused, no edema. LUE: +3x3cm Wound, about 1-2cm depth with surrounding erythema at antecubital area, clean and dry, no discharge. ROM and sensation intact. Laboratory Results - last 24 hr 10/12/18 12:20 Vancomycin Pre-Dose 1.6 L Active Medications Generic Name Dose Route Start Last Admin Trade Name Freq PRN Reason Stop Dose Admin Acetaminophen 650 mg 10/09/18 06:19 10/11/18 16:50 Tylenol - PO 650 mg Q4H PRN Administration PAIN LEVEL 1-5 Vancomycin HCl 1,250 mg/ 250 mls @ 250 mls/2 hr 10/10/18 13:00 10/12/18 16:53 Dextrose IVPB 250 mls/2 hr Q24H SARAH Administration Protocol Methadone HCl 40 mg/ Methadone 60 mg 10/12/18 06:00 10/12/18 06:10 HCl 20 mg PO 60 mg DAILY@0600 SARAH Administration Nicotine 14 mg 10/09/18 19:15 10/12/18 10:20 Nicoderm Patch - TD 14 mg DAILY SARAH Administration ASSESSMENT/PLAN: Patient is a 33 year old male with history of IV drug use on home Methadone 60mg daily, presented with left arm pain and redness for 2 days. #Left arm and forearm abscess: Necrotizing fasciitis -POD 3: Incision and drainage of abscess, L elbow and forearm, wound debridement of skin and necrotic tissue -Dr. Guerrier consulted. Recommendations appreciated. -patient could shower -No packing needed, wet to dry dressing. -Follow-up at the wound clinic -antibiotics as per ID. -ID (Dr. Mallory) consulted. REcommendations appreciated. -Blood culture- negative -Wound culture - +MRSA -contact isolation -Vanc level 1.6 today -Vancomycin 1250mg daily, 250mg added today -Zosyn 3.375gm q8h -Clindamycin discontinued -Tylenol PRN for pain #Polysubstance abuse -On Methadone 60ng daily -U tox: opiates, methadone, cocaine positive -HIV negative -HCV negative #FEN -Not on any standing fluids. -Electrolytes wnl, routine bmp monitoring -Regular diet #Prophylaxis -SCDs, early ambulation #Disposition -full code -med-surg Visit type - Emergency Visit Emergency Visit: Yes ED Registration Date: 10/09/18 Care time: The patient presented to the Emergency Department on the above date and was hospitalized for further evaluation of their emergent condition. - New Patient This patient is new to me today: No - Critical Care Critical Care patient: No
[2018-10-13 02:13] LABS: HBSAG SCREEN Negative (Negative); HEP B CORE AB, TOT Negative (Negative)
[2018-10-13] MEDS ORDERED: METHADONE HCL 40 MG DISPERSABLE TABLET ONE (04:46)
[2018-10-13] MEDS ORDERED: METHADONE HCL 10 MG TABLET ONE (04:46)
[2018-10-13] MEDS: METHADONE 40 MG, METHADONE 20 MG PO SCH (05:59)
[2018-10-13] MEDS: NICOTINE 14 MG/24 HOURS TOPICAL PATCH TD SCH (10:01)
[2018-10-13] MEDS: VANCOMYCIN 1,250 MG in DEXTROSE 5%-WATER - 250 ML IVPB SCH (13:34)
--- NOTE | 2018-10-13 13:46 | PN ---
Progress Note, Physician History of Present Illness: stable dressing changed wound looks good - Current Medication List Current Medications: Active Medications Acetaminophen (Tylenol -) 650 mg PO Q4H PRN PRN Reason: PAIN LEVEL 1-5 Last Admin: 10/11/18 16:50 Dose: 650 mg Vancomycin HCl 1,250 mg/ (Dextrose) 250 mls @ 250 mls/2 hr IVPB Q24H [facility]; Protocol Last Admin: 10/13/18 13:34 Dose: Not Given Methadone HCl 40 mg/ Methadone (HCl 20 mg) 60 mg PO DAILY@0600 [facility] Last Admin: 10/13/18 05:59 Dose: 60 mg Nicotine (Nicoderm Patch -) 14 mg TD DAILY [facility] Last Admin: 10/13/18 10:01 Dose: Not Given - Objective Vital Signs: Vital Signs Temperature 99 F 10/13/18 10:00 Pulse Rate 78 10/13/18 10:00 Respiratory Rate 20 10/13/18 10:00 Blood Pressure 133/71 10/13/18 10:00 O2 Sat by Pulse Oximetry (%) 96 10/12/18 21:00 Constitutional: Yes: No Distress, Calm Cardiovascular: Yes: Regular Rate and Rhythm Respiratory: Yes: Regular, CTA Bilaterally Gastrointestinal: Yes: Normal Bowel Sounds, Soft Musculoskeletal: Yes: WNL Extremities: Yes: WNL Neurological: Yes: Alert, Oriented Psychiatric: Yes: Alert, Oriented Labs: CBC, BMP 10/11/18 08:30 10/11/18 08:30 INR, PTT INR 1.18 (0.83-1.09) H 10/09/18 01:51 Assessment/Plan Problem List - Problems (1) Abscess of left upper arm and forearm Code(s): L02.414 - CUTANEOUS ABSCESS OF LEFT UPPER LIMB (2) Cellulitis Code(s): L03.90 - CELLULITIS, UNSPECIFIED (3) Cocaine dependence, uncomplicated Code(s): F14.20 - COCAINE DEPENDENCE, UNCOMPLICATED necrotizing fascitis plan will change abx to oral doxy patient to get abx for another 14 days wound care rest as per the team
[2018-10-13] MEDS ORDERED: DOXYCYCLINE HYCLATE 100 MG CAPSULE PO ONE (14:15)
--- NOTE | 2018-10-13 14:32 | PN ---
Teaching Attending Note Name of Resident: Heidy Story ATTENDING PHYSICIAN STATEMENT I saw and evaluated the patient. I reviewed the resident's note and discussed the case with the resident. I agree with the resident's findings and plan as documented. SUBJECTIVE: no fever or chills . no pain in L arm . smoked in bathroom today per RN OBJECTIVE: NAD. smells of smoke CV: RRR, No MRG Lungs: CTAB b/l Ext: LUE with clean bandage which was removed. wound base is clean, with healthy tissue. no necrosis noted . minimal surrounding discoloration . L forearm with no edema , RP 2+ . nl color and warmth ASSESSMENT AND PLAN: 33 y/o man with h/o polysubstance abuse, who presented with L arm pain and swelling after IVDU. 1- L antecubital abscess and necrotizing fasciitis, s/p debridement and drainage 10/09/18 - cont doxy for 14 dys for MRSA infection 2- Heroin abuse. - cont Methadone and can use tylenol at dc 3- A1c 5.3. No DM dc home . [facility] has no beds. he can check with them after dc. He was declined by [facility] due to drug use . f/u with PCP , Dr. zheng, and Dr. Mallory. will give number to wound care clinic. he was given wound care instructions .
[2018-10-13 14:50] VITALS: BP 127/83; PULSE 77; TEMP 97.4
--- NOTE | 2018-10-13 15:28 | DS ---
Physical Exam: SUBJECTIVE: Patient seen and examined at bedside this morning. No acute events overnight. Patient has been tolerating pain on Tylenol. He has no complaints. OBJECTIVE: Vital Signs Temperature 97.4 F L 10/13/18 14:46 Pulse Rate 77 10/13/18 14:46 Respiratory Rate 20 10/13/18 14:46 Blood Pressure 127/83 10/13/18 14:46 O2 Sat by Pulse Oximetry (%) 96 10/12/18 21:00 PHYSICAL EXAM GENERAL: The patient is awake, alert, and fully oriented, in no acute distress. HEAD: Normal with no signs of trauma. EYES:PERRLA, EOMI, sclera anicteric, conjunctiva clear. NECK: Trachea midline, full range of motion, supple. LUNGS: Breath sounds equal, clear to auscultation bilaterally. HEART: Regular rate and rhythm, S1, S2 without murmur, rub or gallop. ABDOMEN: Soft, nontender, nondistended, normoactive bowel sounds. EXTREMITIES: 2+ pulses, warm, well-perfused, no edema. LUE: +3x2cm Wound, about 1 cm depth with surrounding erythema at antecubital area, clean and dry, no discharge. ROM and sensation intact. LABS Laboratory Results - last 24 hr 10/11/18 08:30 Hepatitis A Ab Total Negative Hep Bs Antigen Negative Hep Bs Antibody Reactive Hep B Core Total Ab Negative CT of LUE: 1. Well-circumscribed antecubital fossa fluid collection suspicious for an abscess. Extensive edematous changes throughout the remainder of the forearm with no additional discrete collections. HOSPITAL COURSE: Date of Admission:10/09/18 Date of Discharge: 10/13/18 Patient is a 33 year old male with history of IV drug use on home Methadone 60mg daily, presented with left arm pain and redness for [address] of LUE showed well-circumscribed antecubital fossa fluid collection. Surgery and ID consulted. Patient underwent Incision and drainage of abscess, L elbow and forearm, wound debridement of skin and necrotic tissue. Patient was started on Vancomycin, Zosyn and Clindamycin. Wound culture became positive for MRSA and patient was continued on IV Vancomycin. Patient continued to improve and was cleared for discharge by surgery with instructions to follow-up at the wound care clinic. He was also switched to Doxycycline 100mg for 14 days. Patient was discharged with instructions to follow-up with PCP, Dr. Mallory and Dr. Guerrier. Minutes to complete discharge: 35 Discharge Summary Reason For Visit: ABSCESS Current Active Problems Abscess of left upper arm and forearm (Acute) Cellulitis (Acute) Necrotizing fasciitis of upper arm (Acute) IV drug abuse (Chronic) Condition: Improved - Instructions Diet, Activity, Other Instructions: Your visit You were admitted to the hospital because your left arm was red, swollen and painful. you were diagnosed with necrotizing fasciitis. You underwent debridement of the wound, where the surgeon removed the damaged and infected tissue to improve healing, and you were started on IV antibiotics. Care -Please keep the wound clean and dry at all times. -Cover the wound with wet dressing and then cover it with dry gauze. -You may take Tylenol as needed for pain. -Try to avoid smoking; it interferes with good wound healing. -Avoid alcohol and drugs. Medications Please take the following medication as prescribed: 1. Doxycycline 100mg twice a day for 14 days. Continue your other home medications. Follow-up -Follow-up with your primary care doctor (Dr. Sampson) within 1 week. -Follow-up with Dr. Guerrier within 1 week. Please call [phone] to schedule an appointment with him. -If you are not able to make an appointment with Dr. Guerrier soon, call the wound care clinic at [address] Call [phone] to schedule an appointment. -Follow with infectious disease doctor (Dr. Mallory) in a week. Additional info Call [phone] or go to the ED if with any worsening fever, chills, increased drainage or bleeding from the wound, shortness of breath, chest pain, headache, dizziness or any new concerns noted. Referrals: Davon Sampson [Other] - 1 Week Diana Mallory MD [Staff Physician] - 1 Week Erin Guerrier MD [Staff Physician] - 1 Week Disposition: HOME - Home Medications Comprehensive Discharge Medication List: Ambulatory Orders Methadone [Dolophine -] 60 mg PO DAILY 10/09/18 Acetaminophen [Tylenol .Regular Strength -] 650 mg PO Q4H PRN #15 tablet Adhesive Tape [Clear Tape] 1 each TP DAILY #1 tape 10/13/18 Doxycycline Hyclate 100 mg PO BID #28 capsule 10/13/18 Gauze Bandage [Gauze Pads] 1 each TP DAILY #10 bandage 10/13/18 Sodium Chloride [Saline Wound Wash] 210 ml TP DAILY #1 spray 10/13/18 This patient is new to me today: No Emergency Visit: Yes ED Registration Date: 10/09/18 Care time: The patient presented to the Emergency Department on the above date and was hospitalized for further evaluation of their emergent condition. Critical Care patient: No - Discharge Referral Referred to [facility] Med P.C.: No
[2018-10-13] MEDS ORDERED: DOXYCYCLINE HYCLATE 100 MG CAPSULE PO SCH (18:00)
== END 2018-10-13 15:33 | disposition home or self-care (01) | DRG 464 ==
LOC: JER 01:08 → JERBED 05:25 → J8W 17:57 → J5S 10-11 20:28
PROVIDERS: ADMIT Internal Medicine; ATTEND Internal Medicine
PROC: 0J9F0ZX Drainage of Left Upper Arm Subcutaneous Tissue and Fascia, Open Approach, Diagnostic (ICD-10-PCS; 2018-10-09)
PROC: 2W1BX6Z Compression of Left Upper Arm using Pressure Dressing (ICD-10-PCS; 2018-10-09)
PROC: 0JBF0ZZ Excision of Left Upper Arm Subcutaneous Tissue and Fascia, Open Approach (ICD-10-PCS; principal; 2018-10-09 13:30)
DX: M72.6 Necrotizing fasciitis (principal); L03.114 Cellulitis of left upper limb; F14.20 Cocaine dependence, uncomplicated; L02.414 Cutaneous abscess of left upper limb; F11.10 Opioid abuse, uncomplicated; B95.62 Methicillin resistant Staphylococcus aureus infection as the cause of diseases classified elsewhere
CPT/HCPCS: 36415; 71045-TC-FY; 73070-TC-LT-FY; 73201-TC-RT; 80048; 80053; 80307; 81003; 83036; 83605; 83735; 84100; 85025; 85610; 86704; 86706; 86708; 86803; 87040; 87070; 87186; 87205; 87340; 87389; 93005; 93010; 94760; 99285-25; G0396; G0480

== ENCOUNTER 2018-11-02 13:24 | Inpatient (IN) | payer OTHER ==
[2018-11-02 15:54] VITALS: BMI 38.0
--- NOTE | 2018-11-02 16:57 | HP ---
CIWA Score - Admission Criteria [facility] Guidelines: Admission for Medically Managed Detox: Requires at least one of the followin. CIWA greater than 12 2. Seizures within the past 24 hours 3. Delirium tremens within the past 24 hours 4. Hallucinations within the past 24 hours 5. Acute intervention needed for co occurring medical disorder 6. Acute intervention needed for co occurring psychiatric disorder 7. Severe withdrawal that cannot be handled at a lower level of care (continued vomiting, continued diarrhea, abnormal vital signs) requiring intravenous medication and/or fluids 8. Admission ROS [facility] - HPI Chief Complaint: pt here for rehab from cocaine and THC. Pt has no medical problems. Pt in the past was taking seroquel for sleep. Pt is on methadone 40mg/day- [facility]- and in addition is taking IV heroin - 2 bags/day. Was recently hospitalized for abscess of L antecubital fossa. Last use pt claims was yesterday. Pt is very tired- falling asleep. Cocaine- $20/day THC- $5/day Cigarettes- 10 cigs/day Allergies/Adverse Reactions: Allergies Allergy/AdvReac Type Severity Reaction Status Date / Time No Known Allergies Allergy Verified 11/02/18 16:23 Exam Limitations: No Limitations - Ebola screening Have you traveled outside of the country in the last 21 days: No Have you had contact with anyone from an Ebola affected area: No Have you been sick,other than usual withdrawal symptoms: No Do you have a fever: No - Review of Systems Constitutional: No Symptoms Reported EENT: reports: No Symptoms Reported Respiratory: reports: No Symptoms reported Cardiac: reports: No Symptoms Reported Integumentary: reports: No Symptoms Reported Neuro: reports: No Symptoms reported Endocrine: reports: No Symptoms Reported Hematology: reports: No Symptoms Reported Psychiatric: reports: No Sypmtoms Reported Other Systems: Reviewed and Negative Patient History - Patient Medical History Hx Anemia: No Hx Asthma: No Hx Chronic Obstructive Pulmonary Disease (COPD): No Hx Cancer: No Hx Cardiac Disorders: No Hx Congestive Heart Failure: No Hx Hypertension: No Hx Hypercholesterolemia: No Hx Pacemaker: No HX Cerebrovascular Accident: No Hx Seizures: No Hx Dementia: No Hx Diabetes: No Hx Gastrointestinal Disorders: No Hx Liver Disease: No Hx Genitourinary Disorders: No Hx Sexually Transmitted Disorders: No Hx Renal Disease (ESRD): No Hx Thyroid Disease: No Hx Human Immunodeficiency Virus (HIV): No (NEGATIVE HX) Hx Hepatitis C: No Hx Depression: Yes Hx Suicide Attempt: Yes (Tried to drink bleach at age of 15 yrs old.) Hx Bipolar Disorder: No Hx Schizophrenia: No - Patient Surgical History Past Surgical History: No Hx Neurologic Surgery: No Hx Cataract Extraction: No Hx Cardiac Surgery: No Hx Lung Surgery: No Hx Breast Surgery: No Hx Breast Biopsy: No Hx Abdominal Surgery: No Hx Appendectomy: No Hx Cholecystectomy: No Hx Genitourinary Surgery: No Hx Section: No Hx Orthopedic Surgery: No Other Surgical History: Pt had bilateral ear sx as a child. placement of tubes Anesthesia Reaction: No - PPD History Previous Implant?: Yes Documented Results: Negative w/o proof Implanted On Prior [facility] Admission?: No Date: 08/07/17 PPD to be Administered?: Yes - Smoking Cessation Smoking history: Current every day smoker Have you smoked in the past 12 months: Yes Aproximately how many cigarettes per day: 10 Cigars Per Day: 0 Hx Chewing Tobacco Use: No Initiated information on smoking cessation: Yes 'Breaking Loose' booklet given: 11/02/18 - Substances Abused Heroin Route: Injection Frequency: 1-2 times per week Amount used: 2 BAGS Age of first use: 31 Date of Last Use: 11/02/18 Cocaine Route: Inhalation Frequency: 1-2 times per week Amount used: $20 Age of first use: 19 Date of Last Use: 11/01/18 Marijuana/Hashish Route: Smoking Frequency: 1-2 times per week Amount used: $10 Age of first use: 17 Date of Last Use: 10/26/18 Family Disease History - Family Disease History Family Disease History: Diabetes: Grandparent (GM), Brother (2 BROTHERS), Other : Father (crack/cocaine dependency), Mother (crack/cocaine dependency ) Admission Physical Exam BHS - Vital Signs Vital Signs: Vital Signs - 24 hr 11/02/18 15:52 Temperature 98.8 F Pulse Rate 71 Respiratory 18 Rate Blood Pressure 113/70 - Physical General Appearance: Yes: Within Normal Limits HEENTM: Yes: Within Normal Limits, EOMI, Hearing grossly Normal Respiratory: Yes: Within Normal Limits Neck: Yes: Within Normal Limits Cardiology: Yes: Within Normal Limits Abdominal: Yes: Within Normal Limits, Protuberent, Surgical Scar Back: Yes: Within Normal Limits Musculoskeletal: Yes: Within Normal Limits Extremities: Yes: Within Normal Limits Neurological: Yes: Within Normal Limits Integumentary: Yes: Within Normal Limits, Track Richards, Other (healing area of abscess segundo antecubital fossa) Lymphatic: Yes: Within Normal Limits - Diagnostic (1) Alcohol dependence with uncomplicated withdrawal Current Visit: No Status: Chronic (2) Cocaine dependence, uncomplicated Current Visit: No Status: Chronic (3) IV drug abuse Current Visit: No Status: Chronic (4) Methadone maintenance therapy patient Current Visit: No Status: Chronic (5) Obesity Current Visit: No Status: Chronic Qualifiers: Obesity type: due to excess calories BHS Breath Alcohol Content Breath Alcohol Content: 0 Urine Drug Screen - Results Drug Screen Negative: No Urine Drug Screen Results: THC-Marijuana, CHARLIE-Cocaine, OPI-Opiates, MTD- Methadone, FEN-Fentanyl Inpatient Rehab Admission - Initial Determination Free of communicable disease: Yes Not in need of hospitalization: Yes - Rehab Admission Criteria Previous failed treatment: Yes Poor recovery environment: Yes Comorbidities: No Lacks judgement: No Patient is meeting Inpatient Rehab admission criteria:: Yes (pt in methadone program)
[2018-11-02] MEDS ORDERED: MENTHOL/PHENOL 1 EACH UD MM PRN (17:01)
[2018-11-02] MEDS ORDERED: MAGNESIUM HYDROX 2400MG/30ML ORAL SUSPENSION 30 ML CUP PO PRN (17:01)
[2018-11-02] MEDS ORDERED: LOPERAMIDE HCL 2 MG CAPSULE PO PRN (17:01)
[2018-11-02] MEDS ORDERED: MAGNESIUM CITRATE 300 ML BOTTLE PO PRN (17:01)
[2018-11-02] MEDS ORDERED: MAG HYDROX/AL HYDROX/SIMETH 30 ML UNIT-DOSE CUP PO PRN (17:01)
[2018-11-02] MEDS ORDERED: guaiFENesin/D-METHORPHAN HB 10 ML UNIT-DOSE CUPS PO PRN (17:01)
[2018-11-02] MEDS ORDERED: P-EPHED 60MG/TRIPROLIDI 2.5MG TABLET PO PRN (17:01)
[2018-11-02] MEDS ORDERED: TUBERCULIN PPD 5 TU/0.1ML VIAL ID ONE ×2 (18:08→18:10)
[2018-11-02] MEDS: THIAMINE HCL 100 MG TABLET (FP) PO SCH (22:06)
[2018-11-03 02:19] LABS: URINE APPEARANCE CLEAR; URINE BILIRUBIN NEGATIVE (<2.0 mg/dL); URINE COLOR YELLOW; URINE GLUCOSE (UA) NEGATIVE (NEGATIVE); URINE KETONE NEGATIVE (NEGATIVE); URINE LEUK ESTERASE NEGATIVE (NEGATIVE); URINE NITRITE NEGATIVE (NEGATIVE); URINE PROTEIN NEGATIVE (NEGATIVE); URINE UROBILINOGEN NEGATIVE mg/dL (0.2-1.0)
[2018-11-03] MEDS: METHADONE HCL 40 MG DISPERSABLE TABLET PO SCH (06:58)
[2018-11-03] MEDS: hydrOXYzine PAMOATE 50 MG CAPSULE (FP) PO PRN ×3 (06:59→21:50)
[2018-11-03] MEDS: PRENATAL VITAMINS W/ FOLIC ACID TABLET (FP) PO SCH (11:00)
[2018-11-03] MEDS: NICOTINE 14 MG/24 HOURS TOPICAL PATCH TD SCH (11:00)
[2018-11-03 12:11] LABS: HEMATOCRIT 39.7 % (35.4-49); HEMOGLOBIN 13.7 GM/dL (11.7-16.9); MCH 31.2 pg (25.7-33.7); MCHC 34.5 g/dl (32.0-35.9); MEAN CELL VOLUME 90.6 fl (80-96); MEAN PLT VOLUME 8.6 fl (7.5-11.1); PLATELET COUNT 154 K/MM3 (134-434); RBC 4.38 M/mm3 (4.00-5.60); RDW 13.4 % (11.9-15.9); WHITE BLOOD COUNT 6.9 K/mm3 (4.0-10.0)
[2018-11-03 12:36] LABS: ALBUMIN 3.4 g/dl (3.4-5.0); ALK PHOS 53 U/L (45-117); ANION GAP 5 MMOL/L (8-16); BILIRUBIN,TOTAL 0.8 mg/dL (0.2-1); BLOOD UREA NITROGEN 15 mg/dL (7-18); CALCIUM 8.3 mg/dL (8.5-10.1); CHLORIDE 106 mmol/L (98-107); CO2 29 mmol/L (21-32); CREATININE 0.9 mg/dL (0.55-1.3); GLUCOSE,RANDOM 102 mg/dL (74-106); POTASSIUM 4.4 mmol/L (3.5-5.1); SGOT/AST 23 U/L (15-37); SGPT/ALT 44 U/L (13-61); SODIUM 140 mmol/L (136-145); TOT PROT 6.3 g/dl (6.4-8.2)
[2018-11-03] MEDS: ACETAMINOPHEN 325 MG TABLET (FP) PO PRN ×2 (14:49→21:50)
[2018-11-03] MEDS: THIAMINE HCL 100 MG TABLET (FP) PO SCH (21:50)
[2018-11-03] MEDS: MELATONIN 5 MG TABLETS PO PRN (21:51)
[2018-11-04] MEDS: ACETAMINOPHEN 325 MG TABLET (FP) PO PRN (04:06)
[2018-11-04] MEDS: hydrOXYzine PAMOATE 50 MG CAPSULE (FP) PO PRN ×3 (04:06→21:26)
[2018-11-04] MEDS: METHADONE HCL 40 MG DISPERSABLE TABLET PO SCH (07:23)
[2018-11-04] MEDS: NICOTINE 14 MG/24 HOURS TOPICAL PATCH TD SCH (10:44)
[2018-11-04] MEDS: IBUPROFEN 400 MG TABLET (FP) PO PRN ×2 (10:44→21:26)
[2018-11-04] MEDS: PRENATAL VITAMINS W/ FOLIC ACID TABLET (FP) PO SCH (10:46)
[2018-11-04] MEDS: MELATONIN 5 MG TABLETS PO PRN (21:27)
[2018-11-04] MEDS: THIAMINE HCL 100 MG TABLET (FP) PO SCH (21:27)
[2018-11-05] MEDS: IBUPROFEN 400 MG TABLET (FP) PO PRN ×3 (04:49→21:37)
[2018-11-05] MEDS: hydrOXYzine PAMOATE 50 MG CAPSULE (FP) PO PRN ×3 (04:49→21:37)
[2018-11-05] MEDS: METHADONE HCL 40 MG DISPERSABLE TABLET PO SCH (06:52)
[2018-11-05] MEDS: PRENATAL VITAMINS W/ FOLIC ACID TABLET (FP) PO SCH (10:24)
[2018-11-05] MEDS: NICOTINE 14 MG/24 HOURS TOPICAL PATCH TD SCH (10:24)
[2018-11-05] MEDS: THIAMINE HCL 100 MG TABLET (FP) PO SCH (21:35)
[2018-11-05] MEDS: MELATONIN 5 MG TABLETS PO PRN (21:37)
[2018-11-06] MEDS: METHADONE HCL 40 MG DISPERSABLE TABLET PO SCH (06:33)
[2018-11-06 06:53] VITALS: BP 113/70; PULSE 58; TEMP 98.9
[2018-11-06] MEDS: PRENATAL VITAMINS W/ FOLIC ACID TABLET (FP) PO SCH (11:23)
[2018-11-06] MEDS: NICOTINE 14 MG/24 HOURS TOPICAL PATCH TD SCH (11:23)
[2018-11-06] MEDS ORDERED: NICOTINE POLACRILEX 2 MG GUM BUC PRN (13:34)
--- NOTE | 2018-11-06 14:05 | PN ---
[facility] Progress Note Note: LAB REVIEW: Vital Signs - 24 hr 11/06/18 11/06/18 11/06/18 00:30 03:30 06:52 Temperature 98.9 F Pulse Rate 58 L Respiratory 18 18 18 Rate Blood Pressure 113/70 Laboratory Tests 11/02/18 11/03/18 11/03/18 22:50 10:00 10:00 WBC 6.9 RBC 4.38 Hgb 13.7 Hct 39.7 MCV 90.6 MCH 31.2 MCHC 34.5 RDW 13.4 Plt Count 154 D MPV 8.6 Sodium Potassium Chloride Carbon Dioxide Anion Gap BUN Creatinine Creat Clearance w eGFR Random Glucose Calcium Total Bilirubin AST ALT Alkaline Phosphatase Total Protein Albumin Urine Color Yellow Urine Appearance Clear Urine pH 5.0 Ur Specific [place] 1.027 Urine Protein Negative Urine Glucose (UA) Negative Urine Ketones Negative Urine Blood Negative Urine Nitrite Negative Urine Bilirubin Negative Urine Urobilinogen Negative Ur Leukocyte Esterase Negative RPR Titer Hep C Ab Diagnostic HCV RNA PCR w/Genot Rflx Liver Fibrosis Interp HIV 1&2 Antibody Screen Negative HIV P24 Antigen Negative 11/03/18 11/03/18 11/03/18 10:00 10:00 10:00 WBC RBC Hgb Hct MCV MCH MCHC RDW Plt Count MPV Sodium 140 Potassium 4.4 Chloride 106 Carbon Dioxide 29 Anion Gap 5 L BUN 15 Creatinine 0.9 Creat Clearance w eGFR > 60 Random Glucose 102 Calcium 8.3 L Total Bilirubin 0.8 AST 23 ALT 44 Alkaline Phosphatase 53 Total Protein 6.3 L Albumin 3.4 Urine Color Urine Appearance Urine pH Ur Specific [place] Urine Protein Urine Glucose (UA) Urine Ketones Urine Blood Urine Nitrite Urine Bilirubin Urine Urobilinogen Ur Leukocyte Esterase RPR Titer Nonreactive Hep C Ab Diagnostic >11.0 H HCV RNA PCR w/Genot Rflx Hcv not detected Liver Fibrosis Interp HIV 1&2 Antibody Screen HIV P24 Antigen
--- NOTE | 2018-11-06 17:08 | DS ---
[facility] Detox Discharge Summary Admission Date: 11/02/18 - Physical Exam Results Vital Signs: Vital Signs Temperature 98.9 F 11/06/18 06:52 Pulse Rate 58 L 11/06/18 06:52 Respiratory Rate 18 11/06/18 06:52 Blood Pressure 113/70 11/06/18 06:52 O2 Sat by Pulse Oximetry (%) - Medication Discharge Medications: Ambulatory Orders Methadone [Dolophine -] 40 mg PO DAILY 11/02/18
--- NOTE | 2018-11-07 00:13 | PN ---
[facility] Progress Note Note: Patient admitted to rehab on 11/02/18 with cocaine and THC use disorder. Pt denies medical problems. Pt is on methadone 40mg PO daily- [facility] Patient alert and oriented. Steady gait. Patient declines any prescription medications. Patient encouraged to return to [facility] in am for dosing. Vital Signs - 24 hr 11/06/18 11/06/18 11/06/18 00:30 03:30 06:52 Temperature 98.9 F Pulse Rate 58 L Respiratory 18 18 18 Rate Blood Pressure 113/70 Laboratory Last Values WBC 6.9 K/mm3 (4.0-10.0) 11/03/18 10:00 RBC 4.38 M/mm3 (4.00-5.60) 11/03/18 10:00 Hgb 13.7 GM/dL (11.7-16.9) 11/03/18 10:00 Hct 39.7 % (35.4-49) 11/03/18 10:00 MCV 90.6 fl (80-96) 11/03/18 10:00 MCH 31.2 pg (25.7-33.7) 11/03/18 10:00 MCHC 34.5 g/dl (32.0-35.9) 11/03/18 10:00 RDW 13.4 % (11.9-15.9) 11/03/18 10:00 Plt Count 154 K/MM3 (134-434) D 11/03/18 10:00 MPV 8.6 fl (7.5-11.1) 11/03/18 10:00 Sodium 140 mmol/L (136-145) 11/03/18 10:00 Potassium 4.4 mmol/L (3.5-5.1) 11/03/18 10:00 Chloride 106 mmol/L (98-107) 11/03/18 10:00 Carbon Dioxide 29 mmol/L (21-32) 11/03/18 10:00 Anion Gap 5 MMOL/L (8-16) L 11/03/18 10:00 BUN 15 mg/dL (7-18) 11/03/18 10:00 Creatinine 0.9 mg/dL (0.55-1.3) 11/03/18 10:00 Creat Clearance w eGFR > 60 (>60) 11/03/18 10:00 Random Glucose 102 mg/dL (74-106) 11/03/18 10:00 Calcium 8.3 mg/dL (8.5-10.1) L 11/03/18 10:00 Total Bilirubin 0.8 mg/dL (0.2-1) 11/03/18 10:00 AST 23 U/L (15-37) 11/03/18 10:00 ALT 44 U/L (13-61) 11/03/18 10:00 Alkaline Phosphatase 53 U/L (45-117) 11/03/18 10:00 Total Protein 6.3 g/dl (6.4-8.2) L 11/03/18 10:00 Albumin 3.4 g/dl (3.4-5.0) 11/03/18 10:00 Urine Color Yellow 11/02/18 22:50 Urine Appearance Clear 11/02/18 22:50 Urine pH 5.0 (5.0-8.0) 11/02/18 22:50 Ur Specific [place] 1.027 (1.010-1.035) 11/02/18 22:50 Urine Protein Negative (NEGATIVE) 11/02/18 22:50 Urine Glucose (UA) Negative (NEGATIVE) 11/02/18 22:50 Urine Ketones Negative (NEGATIVE) 11/02/18 22:50 Urine Blood Negative (NEGATIVE) 11/02/18 22:50 Urine Nitrite Negative (NEGATIVE) 11/02/18 22:50 Urine Bilirubin Negative (<2.0 mg/dL) 11/02/18 22:50 Urine Urobilinogen Negative mg/dL (0.2-1.0) 11/02/18 22:50 Ur Leukocyte Esterase Negative (NEGATIVE) 11/02/18 22:50 RPR Titer Nonreactive (NONREACTIVE) 11/03/18 10:00 Hep C Ab Diagnostic >11.0 s/co ratio (0.0-0.9) H 11/03/18 10:00 HCV RNA PCR w/Genot Rflx Hcv not detected IU/mL (.) 11/03/18 10:00 Liver Fibrosis Interp (.) 11/03/18 10:00 HIV 1&2 Antibody Screen Negative 11/03/18 10:00 HIV P24 Antigen Negative 11/03/18 10:00 Labs reviewed. Patient declined to stay, despite encouragement and left AMA
== END 2018-11-06 17:18 | disposition left against medical advice (07) | DRG 894 ==
LOC: YASAS 13:24 → Y5N 16:58
PROVIDERS: ADMIT Neuromusculoskeletal Medicine & OMM; ATTEND Neuromusculoskeletal Medicine & OMM
PROC: HZ42ZZZ Group Counseling for Substance Abuse Treatment, Cognitive-Behavioral (ICD-10-PCS; principal; 2018-11-02)
DX: F14.20 Cocaine dependence, uncomplicated (principal); F11.20 Opioid dependence, uncomplicated; F12.20 Cannabis dependence, uncomplicated; F17.210 Nicotine dependence, cigarettes, uncomplicated; E66.9 Obesity, unspecified; Z68.38 Body mass index [BMI] 38.0-38.9, adult
CPT/HCPCS: 36415; 80053; 81003; 85027; 86593; 86803; 87389

== ENCOUNTER 2022-06-22 15:28 | Emergency (ER) | payer OTHER ==
[2022-06-22 15:42] VITALS: RESP 18; BMI 36.2
[2022-06-22] MEDS ORDERED: LIDOCAINE HCL 1%, 10 MG/ML (50 mL VIAL) SQ ONE (16:50)
[2022-06-22] MEDS ORDERED: LIDOCAINE VISCOUS 2% ORAL/TOP 15 ML UNIT-DOSE CUP MM ONE (16:50)
[2022-06-22] MEDS ORDERED: LIDOCAINE HCL 1%, 10 MG/ML (20ML VIAL) ONE (16:57)
[2022-06-22] MEDS ORDERED: LIDOCAINE VISCOUS 2% ORAL/TOP 15 ML UNIT-DOSE CUP ONE (16:57)
[2022-06-22] MEDS ORDERED: ACETAMINOPHEN 325 MG TABLET (FP) PO ONE (17:12)
[2022-06-22] MEDS ORDERED: ACETAMINOPHEN 325 MG TABLET (FP) ONE (17:39)
[2022-06-22 18:22] VITALS: BP 115/75; PULSE 85; TEMP 97.5
== END 2022-06-22 18:22 | disposition home or self-care (01) ==
LOC: JER 15:28
DX: K04.7 Periapical abscess without sinus (principal)
CPT/HCPCS: 99283-25

== ENCOUNTER 2022-08-05 20:38 | Inpatient (IN) | payer OTHER ==
[2022-08-05 20:55] VITALS: BMI 34.8
[2022-08-05] MEDS ORDERED: SODIUM CHLORIDE 0.9% 500 ML INFUS.BAG IV ONE (22:19)
[2022-08-05 22:57] LABS: HEMATOCRIT 45.4 % (35.4-49); HEMOGLOBIN 15.2 GM/dL (11.7-16.9); MCH 30.9 pg (25.7-33.7); MCHC 33.5 g/dl (32.0-35.9); MEAN CELL VOLUME 92.1 fl (80-96); MEAN PLT VOLUME 8.3 fl (7.5-11.1); PLATELET COUNT 214 10^3/uL (134-434); RBC 4.92 M/mm3 (4.00-5.60); RDW 14.1 % (11.9-15.9); WHITE BLOOD COUNT 18.6 K/mm3 (4.0-10.0)
[2022-08-05 23:21] LABS: CHLORIDE 104 mmol/L (98-107); SODIUM 136 mmol/L (136-145)
[2022-08-05] MEDS ORDERED: SODIUM CHLORIDE 3,402 ML IV ONE (23:22)
[2022-08-05 23:26] LABS: BLOOD UREA NITROGEN 15.2 mg/dL (7-18); CO2 26 mmol/L (21-32); GLUCOSE,RANDOM 113 mg/dL (74-106); MAGNESIUM 2.4 mg/dL (1.8-2.4)
[2022-08-05 23:27] LABS: ALBUMIN 3.6 g/dl (3.4-5.0)
[2022-08-05 23:29] LABS: SGOT/AST 305 U/L (15-37); SGPT/ALT 202 U/L (13-61)
[2022-08-05 23:30] LABS: PHOSPHOROUS 4.5 mg/dL (2.5-4.9)
[2022-08-05 23:32] LABS: ALK PHOS 52 U/L (45-117)
[2022-08-05 23:34] LABS: CREATININE 1.5 mg/dL (0.55-1.3)
[2022-08-05 23:54] LABS: VENOUS O2 SATURATION 77.9 % (70-80); VENOUS PCO2 49.4 mmHg (38-52); VENOUS PH 7.287 (7.310-7.410)
[2022-08-06 00:01] LABS: ANION GAP 6 MMOL/L (8-16)
[2022-08-06] MEDS ORDERED: ACETAMINOPHEN 1000 MG/100 ML BAG IVPB ONE (00:01)
[2022-08-06 00:25] LABS: INR 1.28 (0.83-1.09); PROTHROMBIN TIME (PATIENT) 14.7 SEC (9.7-13.0)
[2022-08-06 00:28] LABS: ACTIVATED PTT 27.4 SECONDS (25.2-36.5)
[2022-08-06 00:38] LABS: LACTIC ACID 2.9 mmol/L (0.4-2.0)
[2022-08-06 01:14] LABS: EPI CELLS 6 /uL (0-25.1); HYALINE CASTS 6 /uL (0-3.1); PH,URINE 5.5 (5.0-8.0); URINE APPEARANCE CLOUDY; URINE BACTERIA 6 /uL (0-1359); URINE BILIRUBIN NEGATIVE (NEGATIVE); URINE COLOR YELLOW; URINE GLUCOSE (UA) NEGATIVE (NEGATIVE); URINE KETONE NEGATIVE (NEGATIVE); URINE LEUK ESTERASE NEGATIVE (NEGATIVE); URINE NITRITE NEGATIVE (NEGATIVE); URINE PROTEIN 1+ (NEGATIVE); URINE UROBILINOGEN 0.2 mg/dL (0.2-1.0); URINE WBC 46 /uL (0-25.8)
[2022-08-06 01:20] LABS: URINE BARBITURATES NEGATIVE (NEGATIVE)
[2022-08-06 01:21] LABS: OPIATES, URI NEGATIVE (NEGATIVE); URINE AMPHETAMINES NEGATIVE (NEGATIVE); URINE BENZODIAZEPINES NEGATIVE (NEGATIVE)
[2022-08-06 01:26] LABS: COCAINE, UR POSITIVE (NEGATIVE); METHADONE, UR NEGATIVE (NEGATIVE); PHENCYCLIDINE,URINE POSITIVE (NEGATIVE)
[2022-08-06] MEDS ORDERED: ACETAMINOPHEN INJECTION 100 ML IVPB ONE (01:29)
[2022-08-06] MEDS ORDERED: AZITHROMYCIN IVPB 500 MG in DEXTROSE 5%-WATER - 250 ML IVPB ONE (02:53)
[2022-08-06] MEDS ORDERED: AZITHROMYCIN IVPB 500 MG/250 ML BAG IVPB ONE ×2 (03:22→08:47)
[2022-08-06] MEDS ORDERED: cefTRIAXone SODIUM 1 GM VIAL ONE (03:22)
[2022-08-06 04:56] LABS: URINE RBC 64.9 /uL (0-23.9)
[2022-08-06] MEDS ORDERED: ASPIRIN 81 MG CHEWABLE TABLETS PO ONE (05:52)
[2022-08-06] MEDS ORDERED: ASPIRIN 81 MG CHEWABLE TABLETS ONE (06:12)
[2022-08-06] MEDS ORDERED: HEPARIN - 25,000 UNIT in SODIUM CHLORIDE 495 ML IV SCH (06:30)
[2022-08-06] MEDS ORDERED: HEPARIN INFUSION - 25,000 UNITS/500 ML INFUS.BAG IVPB ONE ×2 (06:41→08:46)
[2022-08-06] MEDS ORDERED: ATORVASTATIN CA 80 MG TABLET (FP) PO ONE (08:45)
[2022-08-06] MEDS ORDERED: SODIUM CHLORIDE 1,000 ML IV SCH ×2 (08:45→15:59)
[2022-08-06] MEDS ORDERED: CEFTRIAXONE 1 GM/50 ML BAG ONE (08:47)
[2022-08-06] MEDS: HEPARIN INFUSION - 25,000 UNITS/500 ML INFUS.BAG IVPB SCH (09:07)
[2022-08-06] MEDS: AZITHROMYCIN IVPB 500 MG/250 ML BAG IVPB SCH (09:15)
[2022-08-06] MEDS ORDERED: ATORVASTATIN CA 40 MG TABLET (FP) ONE ×2 (21:52→22:12)
[2022-08-07] MEDS: HEPARIN NA (PORCINE) 5,000 UNITS/ML 1ML VIAL IVPUSH PRN ×3 (03:21→22:15)
[2022-08-07] MEDS: HEPARIN INFUSION - 25,000 UNITS/500 ML INFUS.BAG IVPB SCH (06:54)
[2022-08-07 08:27] LABS: HEMATOCRIT 37.9 % (35.4-49); HEMOGLOBIN 13.1 GM/dL (11.7-16.9); MCH 31.4 pg (25.7-33.7); MCHC 34.7 g/dl (32.0-35.9); MEAN CELL VOLUME 90.5 fl (80-96); MEAN PLT VOLUME 9.3 fl (7.5-11.1); PLATELET COUNT 132 10^3/uL (134-434); RBC 4.19 M/mm3 (4.00-5.60); RDW 14.1 % (11.9-15.9); WHITE BLOOD COUNT 7.5 K/mm3 (4.0-10.0)
[2022-08-07 08:44] LABS: CALCIUM 7.7 mg/dL (8.5-10.1)
[2022-08-07 08:45] LABS: BLOOD UREA NITROGEN 8.9 mg/dL (7-18); MAGNESIUM 2.1 mg/dL (1.8-2.4)
[2022-08-07 08:47] LABS: PHOSPHOROUS 1.6 mg/dL (2.5-4.9)
[2022-08-07 08:48] LABS: CREATININE 0.7 mg/dL (0.55-1.3)
[2022-08-07 08:49] LABS: BILIRUBIN,TOTAL 0.9 mg/dL (0.2-1)
[2022-08-07 08:51] LABS: TOT PROT 5.2 g/dl (6.4-8.2)
[2022-08-07 08:58] LABS: ALBUMIN 2.8 g/dl (3.4-5.0)
[2022-08-07] MEDS: CEFTRIAXONE 1 GM in DEXTROSE 5%-WATER - 50 ML IVPB SCH (09:40)
[2022-08-07] MEDS: ASPIRIN 81 MG CHEWABLE TABLETS PO SCH (09:41)
[2022-08-07] MEDS: AZITHROMYCIN IVPB 500 MG/250 ML BAG IVPB SCH (09:42)
[2022-08-07] MEDS ORDERED: LACTATED RINGERS SOLUTION 1,000 ML/1,000 ML INFUS.BAG IV SCH (10:45)
[2022-08-07] MEDS: LACTATED RINGERS SOLUTION 1,000 ML/1,000 ML INFUS.BAG IV SCH ×2 (10:48→20:12)
[2022-08-07] MEDS: NAPH,MB-DB/K PH,MBDB POWDER PACKET PO SCH ×2 (10:50→21:17)
[2022-08-07] MEDS: ATORVASTATIN CA 40 MG TABLET (FP) PO SCH (21:17)
[2022-08-08 09:16] LABS: HEMATOCRIT 41.5 % (35.4-49); MCH 30.6 pg (25.7-33.7); MCHC 33.7 g/dl (32.0-35.9); MEAN CELL VOLUME 90.9 fl (80-96); MEAN PLT VOLUME 9.3 fl (7.5-11.1); PLATELET COUNT 141 10^3/uL (134-434); RBC 4.56 M/mm3 (4.00-5.60); RDW 14.2 % (11.9-15.9); WHITE BLOOD COUNT 6.8 K/mm3 (4.0-10.0)
[2022-08-08 09:50] LABS: BLOOD UREA NITROGEN 7.8 mg/dL (7-18)
[2022-08-08 09:55] LABS: CALCIUM 8.3 mg/dL (8.5-10.1)
[2022-08-08] MEDS: CEFTRIAXONE 1 GM in DEXTROSE 5%-WATER - 50 ML IVPB SCH (09:56)
[2022-08-08 09:57] LABS: CREATININE 0.7 mg/dL (0.55-1.3)
[2022-08-08] MEDS: ASPIRIN 81 MG CHEWABLE TABLETS PO SCH (09:57)
[2022-08-08] MEDS: NAPH,MB-DB/K PH,MBDB POWDER PACKET PO SCH ×2 (09:57→21:14)
[2022-08-08 10:01] LABS: BILIRUBIN,TOTAL 1.1 mg/dL (0.2-1); TOT PROT 5.5 g/dl (6.4-8.2)
[2022-08-08] MEDS: LACTATED RINGERS SOLUTION 1,000 ML/1,000 ML INFUS.BAG IV SCH (10:04)
[2022-08-08] MEDS: AZITHROMYCIN IVPB 500 MG/250 ML BAG IVPB SCH (10:04)
[2022-08-08] MEDS: HEPARIN NA (PORCINE) 5,000 UNITS/ML 1ML VIAL IVPUSH PRN (10:44)
[2022-08-08] MEDS: HEPARIN INFUSION - 25,000 UNITS/500 ML INFUS.BAG IVPB SCH (17:54)
[2022-08-08] MEDS ORDERED: LACTATED RINGERS SOLUTION 1,000 ML/1,000 ML INFUS.BAG IV SCH (18:15)
[2022-08-08] MEDS: ATORVASTATIN CA 40 MG TABLET (FP) PO SCH (21:14)
[2022-08-09 08:28] LABS: HEMATOCRIT 41.8 % (35.4-49); HEMOGLOBIN 14.4 GM/dL (11.7-16.9); MCH 31.2 pg (25.7-33.7); MCHC 34.5 g/dl (32.0-35.9); MEAN CELL VOLUME 90.4 fl (80-96); MEAN PLT VOLUME 8.8 fl (7.5-11.1); PLATELET COUNT 154 10^3/uL (134-434); RBC 4.62 M/mm3 (4.00-5.60); RDW 13.9 % (11.9-15.9); WHITE BLOOD COUNT 8.2 K/mm3 (4.0-10.0)
[2022-08-09 09:01] LABS: BLOOD UREA NITROGEN 9.3 mg/dL (7-18); CALCIUM 8.3 mg/dL (8.5-10.1)
[2022-08-09 09:02] LABS: ALBUMIN 2.8 g/dl (3.4-5.0)
[2022-08-09 09:06] LABS: CREATININE 0.9 mg/dL (0.55-1.3); TOT PROT 5.6 g/dl (6.4-8.2)
[2022-08-09 09:07] LABS: BILIRUBIN,TOTAL 1.2 mg/dL (0.2-1)
[2022-08-09] MEDS: CEFTRIAXONE 1 GM in DEXTROSE 5%-WATER - 50 ML IVPB SCH (09:23)
[2022-08-09] MEDS: ENOXAPARIN NA (PORCINE) 40 MG/0.4 ML DISP.SYRIN SQ SCH (09:23)
[2022-08-09] MEDS: ASPIRIN 81 MG CHEWABLE TABLETS PO SCH (09:25)
[2022-08-09] MEDS: AZITHROMYCIN IVPB 500 MG/250 ML BAG IVPB SCH (09:25)
[2022-08-09] MEDS: ATORVASTATIN CA 40 MG TABLET (FP) PO SCH (21:05)
[2022-08-09] MEDS: LACTATED RINGERS SOLUTION 1,000 ML/1,000 ML INFUS.BAG IV SCH (21:05)
[2022-08-10 07:57] LABS: HEMATOCRIT 46.1 % (35.4-49); HEMOGLOBIN 15.5 GM/dL (11.7-16.9); MCH 30.4 pg (25.7-33.7); MCHC 33.6 g/dl (32.0-35.9); MEAN CELL VOLUME 90.5 fl (80-96); PLATELET COUNT 172 10^3/uL (134-434); RDW 14.1 % (11.9-15.9); WHITE BLOOD COUNT 8.8 K/mm3 (4.0-10.0)
[2022-08-10 08:43] LABS: CALCIUM 8.7 mg/dL (8.5-10.1)
[2022-08-10 08:44] LABS: ALBUMIN 3.3 g/dl (3.4-5.0); BLOOD UREA NITROGEN 10.9 mg/dL (7-18)
[2022-08-10 08:48] LABS: TOT PROT 6.2 g/dl (6.4-8.2)
[2022-08-10 08:49] LABS: BILIRUBIN,TOTAL 1.2 mg/dL (0.2-1)
[2022-08-10] MEDS: ASPIRIN 81 MG CHEWABLE TABLETS PO SCH (09:09)
[2022-08-10] MEDS: LACTATED RINGERS SOLUTION 1,000 ML/1,000 ML INFUS.BAG IV SCH ×2 (09:09→11:15)
[2022-08-10] MEDS: AZITHROMYCIN IVPB 500 MG/250 ML BAG IVPB SCH (09:09)
[2022-08-10] MEDS: ENOXAPARIN NA (PORCINE) 40 MG/0.4 ML DISP.SYRIN SQ SCH (09:09)
[2022-08-10] MEDS: CEFTRIAXONE 1 GM in DEXTROSE 5%-WATER - 50 ML IVPB SCH (09:09)
[2022-08-10 13:53] VITALS: BP 123/71; PULSE 68; RESP 18; TEMP 98.5
== END 2022-08-10 15:11 | disposition left against medical advice (07) | DRG 280 ==
LOC: JER 20:38 → JERBED 08-06 05:34 → J4S 08-07 00:17
PROVIDERS: ADMIT Family Medicine; ATTEND Internal Medicine
DX: I21.4 Non-ST elevation (NSTEMI) myocardial infarction (principal); J18.9 Pneumonia, unspecified organism; M62.82 Rhabdomyolysis; F19.10 Other psychoactive substance abuse, uncomplicated; D72.829 Elevated white blood cell count, unspecified; E66.01 Morbid (severe) obesity due to excess calories; E87.5 Hyperkalemia; F17.210 Nicotine dependence, cigarettes, uncomplicated; Z59.00 Homelessness unspecified; Z68.34 Body mass index [BMI] 34.0-34.9, adult
CPT/HCPCS: 0241U-QW; 36415; 71045-TC-FY; 71275-TC; 74177-TC; 76775-TC; 80053; 80061; 80307; 81003; 82550; 82553; 82570; 82803; 83605; 83735; 84100; 84132; 84156; 84300; 84443; 84484; 85027; 85379; 85610; 85730; 86480; 86850; 86900; 86901; 87040; 87086; 87899; 93005; 93010; 93306-TC; 99285-25; J1644; Q9967

== ENCOUNTER 2022-10-08 12:58 | Inpatient (IN) | payer OTHER ==
[2022-10-08 16:52] VITALS: BMI 37.3
[2022-10-08] MEDS ORDERED: ACETAMINOPHEN 325 MG TABLET (FP) PO PRN ×2 (17:47)
[2022-10-08] MEDS ORDERED: MAGNESIUM HYDROX 2400MG/30ML ORAL SUSPENSION 30 ML CUP PO PRN (17:47)
[2022-10-08] MEDS ORDERED: NICOTINE POLACRILEX 2 MG GUM BUC PRN (17:47)
[2022-10-08] MEDS ORDERED: NALOXONE HCL (KLOXXADO) 8 MG SPRAY NS PRN (17:47)
[2022-10-08] MEDS ORDERED: MAG HYDROX/AL HYDROX/SIMETH 30 ML UNIT-DOSE CUP PO PRN (17:47)
[2022-10-08] MEDS ORDERED: DICYCLOMINE HCL 10 MG CAPSULE PO PRN (17:47)
[2022-10-08] MEDS ORDERED: NALOXONE HCL 0.4 MG/ML VIAL IM PRN (17:47)
[2022-10-08] MEDS ORDERED: BISMUTH SUBSALICYLATE 524 MG/30 ML PO PRN (17:47)
[2022-10-08] MEDS ORDERED: P-EPHED 60MG/TRIPROLIDI 2.5MG TABLET PO PRN (17:47)
[2022-10-08] MEDS ORDERED: IBUPROFEN 600 MG TABLET (FP) PO PRN (17:47)
[2022-10-08] MEDS ORDERED: guaiFENesin 200 MG/10 ML 10 ML UNIT-DOSE CUPS PO PRN (17:47)
[2022-10-08] MEDS ORDERED: IBUPROFEN 400 MG TABLET (FP) PO PRN (17:47)
[2022-10-08] MEDS ORDERED: LOPERAMIDE HCL 2 MG CAPSULE PO PRN (17:47)
[2022-10-08] MEDS ORDERED: ONDANSETRON *ODT* 4 MG TABLET SL PRN (17:47)
[2022-10-08] MEDS ORDERED: POLYETHYLENE GLYCOL (HEALTHYLAX) 3350 17 GM PACKET PO PRN (17:47)
[2022-10-08] MEDS ORDERED: BENZOCAINE/MENTHOL (CHLORASEPTIC ) LOZENGE MM PRN (17:47)
[2022-10-08] MEDS: METHOCARBAMOL 500 MG TABLET PO PRN (20:38)
[2022-10-08] MEDS: MELATONIN 5 MG TABLETS PO PRN (21:04)
[2022-10-08] MEDS: THIAMINE HCL 100 MG TABLET (FP) PO SCH (21:04)
[2022-10-09] MEDS: PRENATAL VITAMINS W/ FOLIC ACID TABLET (FP) PO SCH (10:20)
[2022-10-09] MEDS: METHOCARBAMOL 500 MG TABLET PO PRN ×2 (10:21→22:09)
[2022-10-09] MEDS ORDERED: cloNIDine HCL 0.1 MG TABLET PO PRN (10:45)
[2022-10-09] MEDS ORDERED: methaDONE HCL 10 MG TABLET (FOR DETOX USE ONLY) PO ONE (12:15)
[2022-10-09] MEDS: diazePAM 5 MG TABLET PO PRN ×2 (12:26→22:07)
[2022-10-09 12:54] LABS: HEMOGLOBIN 14.1 GM/dL (11.7-16.9); MCH 30.5 pg (25.7-33.7); MCHC 33.5 g/dl (32.0-35.9); MEAN CELL VOLUME 91.1 fl (80-96); MEAN PLT VOLUME 8.7 fl (7.5-11.1); PLATELET COUNT 171 10^3/uL (134-434); RBC 4.61 M/mm3 (4.00-5.60); RDW 13.7 % (11.9-15.9); WHITE BLOOD COUNT 6.6 K/mm3 (4.0-10.0)
[2022-10-09 13:29] LABS: CALCIUM 8.3 mg/dL (8.5-10.1)
[2022-10-09 13:30] LABS: ALBUMIN 3.1 g/dl (3.4-5.0); BLOOD UREA NITROGEN 15.4 mg/dL (7-18)
[2022-10-09 13:33] LABS: BILIRUBIN,TOTAL 0.3 mg/dL (0.2-1); CREATININE 0.9 mg/dL (0.55-1.3)
[2022-10-09 13:34] LABS: TOT PROT 5.9 g/dl (6.4-8.2)
[2022-10-09] MEDS: THIAMINE HCL 100 MG TABLET (FP) PO SCH (22:07)
[2022-10-09] MEDS: MELATONIN 5 MG TABLETS PO PRN (22:07)
[2022-10-10 08:54] VITALS: RESP 19
[2022-10-10] MEDS: METHOCARBAMOL 500 MG TABLET PO PRN (09:43)
[2022-10-10] MEDS: PRENATAL VITAMINS W/ FOLIC ACID TABLET (FP) PO SCH (09:43)
[2022-10-10] MEDS: diazePAM 5 MG TABLET PO PRN (09:46)
[2022-10-10 13:26] VITALS: BP 115/70; PULSE 60; TEMP 96.9
[2022-10-11] MEDS ORDERED: methaDONE HCL 10 MG TABLET (FOR DETOX USE ONLY) PO ONE (10:00)
[2022-10-13] MEDS ORDERED: methaDONE HCL 10 MG TABLET (FOR DETOX USE ONLY) PO ONE (10:00)
== END 2022-10-10 14:51 | disposition left against medical advice (07) | DRG 894 ==
LOC: YASAS 12:58 → Y3N 19:40
PROVIDERS: ADMIT Allergy & Immunology; ATTEND Surgery
PROC: HZ2ZZZZ Detoxification Services for Substance Abuse Treatment (ICD-10-PCS; principal; 2022-10-08)
DX: F11.23 Opioid dependence with withdrawal (principal); F14.20 Cocaine dependence, uncomplicated; F12.20 Cannabis dependence, uncomplicated; F17.210 Nicotine dependence, cigarettes, uncomplicated; Z28.310 Unvaccinated for COVID-19; Z28.9 Immunization not carried out for unspecified reason
CPT/HCPCS: 36415; 80053; 85027; 86780; C9803-CS; U0003; U0005